=== PATIENT | male | born 1945 | race Caucasian/White ===

== ENCOUNTER → 2016-05-31 | Outpatient (CLI) | payer BC ==
[~2016-05-31] MED LIST: ASPEC325 PO; ASPI81TA28 PO; ATOR-24 PO; CELE100C PO; CELE1CAP30 PO; CEPH500C2 PO; CLOP1TAB15 PO; CYAN10005 PO; METO-478 PO; MULT-506 PO; NTRGSL/4 UT; TAMS0.4C38 PO; ZNTT/150 PO
--- NOTE | 2016-05-31 16:58 | DIAGNOSTIC IMAGING REPORT ---
ABDOMEN AND PELVIS CT WITHOUT CONTRAST CT DOSE: 341.44 mGy.cm HISTORY: Pain HEMATURIA TECHNIQUE: Multiaxial CT images of the abdomen and pelvis were performed without the use of intravenous and oral contrast according to the standard department stone protocol. COMPARISON STUDY: None. FINDINGS: Emphysematous change both lung bases. Configuration of liver spleen and pancreas are grossly unremarkable. Left kidney is negative for calcification or hydronephrosis. Right kidney shows several nonobstructing renal calcifications. There is mild fullness of the right renal pelvis and right ureter. There is a 2.5 mm obstructing calculus distal right ureter 2 cm proximal to the right ureterovesical junction. Bowel pattern is considered nonobstructive. There is extensive atherosclerotic change of the arterial vasculature of the of the abdomen and pelvis. Appears be a left iliac arterial stent in her bypass. IMPRESSION: 1. 2.5 mm partially obstructing calculus distal right ureter. 2. Several nonobstructing right renal calcifications. Electronically signed by: Jl Sherwood M.D. 05/31/2016 4:56 PM Dictated Date/Time: 05/31/2016 4:54 PM
== END | disposition home or self-care (01) ==
LOC: C.CTS 16:41
PROVIDERS: ATTEND Family Medicine
DX: R31.0 Gross hematuria (principal); N20.1 Calculus of ureter; N28.89 Other specified disorders of kidney and ureter

== ENCOUNTER → 2016-06-02 | Outpatient (CLI) | payer BC | END | disposition home or self-care (01) | LOC: C.LABSPEC 17:12 | PROVIDERS: ATTEND Nurse Practitioner Adult Health | DX: N20.1 Calculus of ureter (principal) ==

== ENCOUNTER → 2016-09-27 | Outpatient (CLI) | payer BC ==
[~2016-09-27] MED LIST changes: -ASPI81TA28 PO; -CELE1CAP30 PO; -CEPH500C2 PO; -METO-478 PO; +METO1TAB31 PO; -TAMS0.4C38 PO
[2016-09-27 11:14] LABS: BASO % 0.6 %; BASO ABS # 0.04 K/uL (0-0.2); COMPLETE YES; EOS % 2.6 %; IG% 0.3 %; LYMPH % 27.5 %; LYMPH ABS # 1.92 K/uL (1.2-3.4); MEAN CELL VOLUME 94.9 fL (80-100); MEAN CORPUSCULAR HGB CONC 32.7 g/dl (32-36); MEAN PLATELET VOLUME 10.4 fL (7.4-10.4); MONO % 7.7 %; NEUT % 61.3 %; PLATELET COUNT 183 K/uL (130-400); RED BLOOD COUNT 5.06 M/uL (4.7-6.1); WHITE BLOOD COUNT 6.98 K/uL (4.8-10.8)
[2016-09-27 11:39] LABS: ESTIMATED AVERAGE GLUCOSE 120 mg/dl; HA1C FLAG Normal (Normal)
[2016-09-27 11:43] LABS: ALB/GLOB RATIO 1.1 (0.9-2); ALKALINE PHOSPHATASE 71 U/L (45-117); ALT/SGPT 24 U/L (12-78); AST/SGOT 15 U/L (15-37); BLOOD UREA NITROGEN 26 mg/dl (7-18); BUN/CREATININE RATIO 30.2 (10-20); CALCIUM 8.9 mg/dl (8.5-10.1); CARBON DIOXIDE 29 mmol/L (21-32); CHLORIDE 108 mmol/L (98-107); CHOLESTEROL 96 mg/dl (0-200); CREATININE 0.85 mg/dl (0.60-1.40); GLUCOSE 98 mg/dl (70-99); HDL CHOLESTEROL 48 mg/dl; LDL CHOLESTEROL CALCULATED 38 mg/dl; POTASSIUM 4.1 mmol/L (3.5-5.1); SODIUM 141 mmol/L (136-145); TRIGLYCERIDES 48 mg/dl (0-150); URIC ACID 4.5 mg/dl (2.6-7.2); VERY LOW DENSITY LIPOPROT CALC 10 mg/dl
[2016-09-27 11:52] LABS: TOTAL IRON BINDING CAPACITY 271 mcg/dl (250-450)
[2016-09-30 17:19] LABS: 18KDIGG BAND NONREACTIVE (NONREACTIVE); 23KDIGG BAND NONREACTIVE (NONREACTIVE); 23KDIGM BAND NONREACTIVE (NONREACTIVE); 28KDIGG BAND NONREACTIVE (NONREACTIVE); 30KDIGG BAND NONREACTIVE (NONREACTIVE); 39KDIGG BAND NONREACTIVE (NONREACTIVE); 39KDIGM BAND NONREACTIVE (NONREACTIVE); 41KDIGG BAND REACTIVE (NONREACTIVE); 41KDIGM BAND NONREACTIVE (NONREACTIVE); 45KDIGG BAND NONREACTIVE (NONREACTIVE); 58KDIGG BAND REACTIVE (NONREACTIVE); 66KDIGG BAND NONREACTIVE (NONREACTIVE); 93KDIGG BAND NONREACTIVE (NONREACTIVE)
== END | disposition home or self-care (01) ==
LOC: C.LAB 08:15
PROVIDERS: ATTEND Family Medicine
DX: R73.09 Other abnormal glucose (principal); E55.9 Vitamin D deficiency, unspecified; D51.9 Vitamin B12 deficiency anemia, unspecified; E78.9 Disorder of lipoprotein metabolism, unspecified; R53.83 Other fatigue

== ENCOUNTER → 2016-09-28 | Outpatient (CLI) | payer BC ==
--- NOTE | 2016-09-28 09:51 | DIAGNOSTIC IMAGING REPORT ---
ULTRASOUND EXAM AAA SCREEN CLINICAL HISTORY: ABD AORTIC ANEURYSM COMPARISON STUDY: CT scan dated 05/31/2016 FINDINGS: There are diffuse atheromatous changes present within the abdominal aorta. There is no evidence of abdominal aortic aneurysm. The maximal aortic diameter is 2.5 cm proximally. The maximal distal aortic diameter is 2 cm. There is no iliac artery aneurysm. IMPRESSION: Diffuse atheromatous change. No evidence of abdominal aortic aneurysm. Electronically signed by: Kolby Burks M.D. 09/28/2016 9:49 AM Dictated Date/Time: 09/28/2016 9:48 AM
== END | disposition home or self-care (01) ==
LOC: C.ULTR 09:10
PROVIDERS: ATTEND Family Medicine
DX: I71.4 Abdominal aortic aneurysm, without rupture (principal)

== ENCOUNTER 2017-01-19 14:07 | Emergency (ER) | payer BC ==
[~2017-01-19] VITALS: Ht 177.8 cm; Wt 61.2 kg
[~2017-01-19 14:07] MED LIST changes: +METO-478 PO; -METO1TAB31 PO
[2017-01-19 14:23] VITALS: Ht 177.8 cm; Wt 61.2 kg
[2017-01-19] MEDS ORDERED: XYLOCAINE 1%/SOD BICARB 20 ML VIAL INFIL ONE (15:00)
--- NOTE | 2017-01-19 15:11 | DIAGNOSTIC IMAGING REPORT ---
L FINGER(S) MIN 2 VIEWS ROUTINE CLINICAL HISTORY: LEFT THUMB, LAC AT DORSAL 1ST MCP JOINT COMPARISON: None. DISCUSSION: Soft tissue edema and disruption. No acute bony abnormality. Cortical margins are intact. IMPRESSION: Soft tissue disruption/laceration. No acute bony abnormality. The above report was generated using voice recognition software. It may contain grammatical, syntax or spelling errors. Electronically signed by: Jl Sherwood M.D. 01/19/2017 3:09 PM Dictated Date/Time: 01/19/2017 3:08 PM
[2017-01-19] MEDS ORDERED: ASPI81TA28 PO (15:14)
[2017-01-19] MEDS ORDERED: CELE1CAP30 PO (15:14)
[2017-01-19] MEDS ORDERED: TAMS0.4C38 PO (15:14)
[2017-01-19] MEDS ORDERED: CEPH500C2 PO (15:59)
--- NOTE | 2017-01-19 15:59 | EMERGENCY ROOM VISIT NOTE ---
ED Visit Note First contact with patient: 14:36 CHIEF COMPLAINT: Left thumb laceration a couple of hours ago HISTORY OF PRESENT ILLNESS: Patient is a [id number] 71-year-old white male who presents to the emergency department for evaluation of a laceration to the left thumb that he sustained a couple of hours ago. He was using a meat saw to cut up a deer, when he slipped and accidentally cut the back of his left thumb. Bleeding has been controlled. He notes minimal pain that he rates a 2/ 10. He denies any numbness or weakness. He believes that the tetanus is up-to- date. REVIEW OF SYSTEMS: Review of systems as per HPI. All other systems reviewed were negative. At least 6 systems reviewed. PMH: Electronic medical records are reviewed and summarized as above/below. See Problem List. SOCIAL HISTORY: Patient lives at home. Smoker. PHYSICAL EXAM: Vital Signs: Reviewed Nurse's notes. There is a 3 cm long laceration on the dorsal aspect of the left thumb over the MCP joint. The edges are gaping apart. There is no foreign material in the wound and it looks clean. There is no active bleeding. No deep structures such as tendons or nerves are seen in the base of the wound. Extension, flexion and abduction and adduction of the thumb is full and strong. Sensation to pain and light touch is intact. EMERGENCY DEPARTMENT COURSE: X-rays of the left thumb were obtained and were negative for bony pathology. Using sterile technique, saline and Betadine cleansing, and 1% lidocaine anesthesia, the laceration was irrigated with saline and then repaired with 8, 5 -0 nylon sutures. There was no evidence for tenderness injury, but the patient did get into joint capsule. Laceration did not extend into the joint space. After discussion with the patient, he has elected to get a new tetanus today, as he is unsure whether it is 4 or 10 years old. This was updated today. He will be placed on Keflex given the capsule injury, again by exam and range of motion there does not appear to be any ligamentous injury. Wound care measures were discussed. Medication reconciliation: I attest that I have personally reviewed the patient' s current medication list. Blood pressure screening : Patient was found to have normal blood pressure on screening and does not require follow-up. L FINGER(S) MIN 2 VIEWS ROUTINE CLINICAL HISTORY: LEFT THUMB, LAC AT DORSAL 1ST MCP JOINT COMPARISON: None. DISCUSSION: Soft tissue edema and disruption. No acute bony abnormality. Cortical margins are intact. IMPRESSION: Soft tissue disruption/laceration. No acute bony abnormality. Problem List Medical Problems: (1) Atrial Fibrillation Status: Chronic (2) Calculus Of Ureter Status: Resolved (3) COPD (chronic obstructive pulmonary disease) Status: Chronic (4) Coronary Atherosclerosis Of [place] Coronary Vessel Status: Chronic (5) Esophageal Reflux Status: Chronic (6) Hyperlipidemia, Unspecified Status: Chronic (7) Hypertension Nos Status: Chronic Surgical Problems: (1) Heart Valve Replac Nec Status: Resolved Current/Historical Medications Scheduled Aspirin (Aspirin Ec), 81 MG PO DAILY Atorvastatin (Lipitor), 40 MG PO DAILY Celecoxib (Celecoxib), 200 MG PO DAILY Cephalexin Monohydrate (Keflex), 500 MG PO QID Clopidogrel (Plavix), 75 MG PO DAILY Cyanocobalamin (Vitamin B-12), 1,000 MCG PO DAILY Metoprolol Succinate (Toprol Xl), 12.5 MG PO QPM Multivitamin (Multivitamin), 1 TAB PO DAILY Ranitidine (Zantac), 150 MG PO BID Tamsulosin Hcl (Flomax), 0.4 MG PO HS Allergies Coded Allergies: No Known Allergies (Unverified , 01/19/17) Vital Signs Date Time Temp Pulse Resp B/P (MAP) Pulse Ox O2 Delivery O2 Flow Rate FiO2 01/19/17 16:08 109 18 94/59 94 Room Air 01/19/17 14:23 36.9 109 20 120/77 94 Room Air Departure Information Impression Primary Impression: Laceration of thumb Prescriptions Cephalexin Monohydrate (KEFLEX) 500 Mg Cap 500 MG PO QID, #40 CAP Prov: Charisma Matta PA 01/19/17 Referrals No Doctor, Assigned (PCP) Patient Instructions My [facility] Additional Instructions Keep wound clean and dry. Do not allow any crusting or dried blood to accumulate on sutures. If this occurs, use a 1:1 solution of hydrogen peroxide/ water on a Q-tip to clean the wound. Use an antibiotic ointment for 3-4 days, then let wound dry. Suture removal in 14 days. Return sooner for any signs of infection (increasing redness, swelling, drainage). Ice and elevate for swelling and pain. Ibuprofen 600 mg and Tylenol 1000 mg every 6 hrs for pain. Cephalexin(Keflex) 500mg: Take one pill four times daily for 10 days to prevent infection. All antibiotics can cause diarrhea. If this occurs and you feel worse or it does not resolve in 1-2 days follow up with your doctor or return to the Emergency Department as this could be signs of serious underlying problems. Any medication can cause an allergic reaction, stop the pills immediately and return to the ER for rash, hives, breathing difficulties, or swelling.
[2017-01-19 16:30] VITALS: BP 94/59; PULSE 109; TEMP 36.9; O2SAT 94
[2017-01-19] MEDS ORDERED: DIPHTHERIA/TETANUS/PERTUSSIS 0.5 ML SYR/VIAL IM. ONE (16:30)
== END 2017-01-19 16:42 | disposition home or self-care (01) ==
LOC: C.EDB 14:09 → C.EDD 16:42
DX: S61.012A Laceration without foreign body of left thumb without damage to nail, initial encounter (principal); W27.0XXA Contact with workbench tool, initial encounter; Y93.89 Activity, other specified; F17.210 Nicotine dependence, cigarettes, uncomplicated; Z23 Encounter for immunization; I48.2 Chronic atrial fibrillation; Z87.442 Personal history of urinary calculi; J44.9 Chronic obstructive pulmonary disease, unspecified; I25.10 Atherosclerotic heart disease of native coronary artery without angina pectoris; K21.9 Gastro-esophageal reflux disease without esophagitis; E78.5 Hyperlipidemia, unspecified; I10 Essential (primary) hypertension; Z95.2 Presence of prosthetic heart valve; Z79.82 Long term (current) use of aspirin; Z79.01 Long term (current) use of anticoagulants; Z79.899 Other long term (current) drug therapy

== ENCOUNTER → 2017-06-14 | Outpatient (CLI) | payer BC ==
[~2017-06-14] MED LIST changes: -ASPEC325 PO; +ASPI81TA28 PO; -CELE100C PO; +CELE1CAP30 PO; +CEPH500C2 PO; -NTRGSL/4 UT; +RANI150T85 PO; +TAMS0.4C38 PO; -ZNTT/150 PO
[2017-06-14 10:46] LABS: BASO % 0.4 %; BASO ABS # 0.03 K/uL (0-0.2); EOS % 1.7 %; EOS ABS # 0.13 K/uL (0-0.5); IG# 0.02 K/uL (0.00-0.02); LYMPH % 19.2 %; MEAN CORPUSCULAR HEMOGLOBIN 32.4 pg (25-34); MEAN CORPUSCULAR HGB CONC 34.1 g/dl (32-36); MEAN PLATELET VOLUME 9.7 fL (7.4-10.4); MONO % 7.8 %; MONO ABS # 0.61 K/uL (0.11-0.59); NEUT % 70.6 %; NEUT ABS # 5.51 K/uL (1.4-6.5); PLATELET COUNT 240 K/uL (130-400); RED CELL DISTRIBUTION WIDTH CV 14.5 % (11.5-14.5); RED CELL DISTRIBUTION WIDTH SD 50.5 fL (36.4-46.3)
[2017-06-14 11:16] LABS: ALBUMIN 3.5 gm/dl (3.4-5.0); ALT/SGPT 25 U/L (12-78); BLOOD UREA NITROGEN 20 mg/dl (7-18); CALCIUM 9.3 mg/dl (8.5-10.1); CARBON DIOXIDE 27 mmol/L (21-32); CREATININE 0.87 mg/dl (0.60-1.40); GLUCOSE 105 mg/dl (70-99); POTASSIUM 4.2 mmol/L (3.5-5.1); SODIUM 137 mmol/L (136-145)
[2017-06-14 11:20] LABS: ALKALINE PHOSPHATASE 68 U/L (45-117); AST/SGOT 18 U/L (15-37); TOTAL PROTEIN 7.8 gm/dl (6.4-8.2)
== END | disposition home or self-care (01) ==
LOC: C.LABBC 08:13
PROVIDERS: ATTEND Internal Medicine
DX: E78.5 Hyperlipidemia, unspecified (principal)

== ENCOUNTER 2020-04-29 06:53 | Inpatient (IN) ==
--- NOTE | 2020-04-29 07:23 | Emergency Department Note ---
ED Visit Note This patient was seen in concert with Dr. Schneider and we discussed and agreed upon the history, physical, assessment, and plan. See attending's note for details. . Resident Activity Tracking Resident Involvement: Resident Care Provided Care Provided: Adult ED
[2020-04-29] MEDS ORDERED: SODIUM CHLORIDE 0.9% 1000ML 1,000 ML IV SCH (07:30)
--- NOTE | 2020-04-29 07:36 | Emergency Department Note ---
History of Present Illness General Chief complaint: Illness Stated complaint: LUNG CANCER MATASTISIZED TO BRAIN-EPISODE Time Seen by Provider: 04/29/20 07:11 Source: patient Mode of arrival: ambulatory Limitations: no limitations History of Present Illness Provider complaint: Shortness of breath Maximum Pain Intensity: 9 This is a 75-year-old male who presents to the ED with a chief complaint of shortness of breath. The patient has had increased weakness. He also lost taste today. 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 He has a cough on exam. He does use oxygen at home. His oxygen saturation on 2 L here was around 75%. He is requiring a oxygen mask. He is currently on 3 L. He has a fever 37.9. Patient is otherwise a poor historian. He seems a little restless. Home Medications Medication Instructions Recorded Confirmed Type multivitamin 1 tab PO QAM 09/26/18 04/29/20 History albuterol sulfate 90 mcg/actuation 1 puffs INH QID PRN #1 ea 08/30/19 04/29/20 Rx breath activated powder inhaler celecoxib 200 mg capsule 200 mg PO BID cap 08/30/19 04/29/20 History clopidogrel 75 mg tablet 75 mg PO DAILY #90 tab 09/04/19 04/29/20 Rx Portable Oxygen #1 ea 09/13/19 04/21/20 Rx famotidine 40 mg tablet 40 mg PO BID tab 03/19/20 04/29/20 History tamsulosin 0.4 mg capsule 0.4 mg PO QAM cap 03/19/20 04/29/20 History aspirin [Aspir-81] 81 mg PO HS 04/29/20 04/29/20 History atorvastatin 40 mg PO HS 04/29/20 04/29/20 History clindamycin phosphate 1 applic TOPICAL BID PRN 04/29/20 04/29/20 History dexamethasone 4 mg PO BID 04/29/20 04/29/20 History isosorbide mononitrate 15 mg PO HS 04/29/20 04/29/20 History metoclopramide HCl 5 mg PO BID 04/29/20 04/29/20 History umeclidinium-vilanterol [Anoro 1 inh INH QAM 04/29/20 04/29/20 History Ellipta] Allergies Allergy/AdvReac Type Severity Reaction Status Date / Time No Known Allergies Allergy Verified 04/29/20 09:01 Past Med/Surg History Medical History Cachexia CAD (coronary artery disease) Chest pain Chronic cough Chronic hypoxemic respiratory failure 3L NC Cigar smoker Former, quit 07/2019 COPD (chronic obstructive pulmonary disease) Dyslipidemia Dyspnea on exertion Emphysema lung Fatigue Former cigarette smoker from age [age] GE reflux H/O arthritis History of myocardial infarction (~2012) History of syncope Hypoxemia Nephrolithiasis Non-small cell lung cancer (NSCLC) (09/28/19) Vomiting Weakness Surgical History History of coronary artery stent placement (~2012) History of hernia surgery x 2 History of hip surgery Left S/P bronchoscopy with biopsy 09/28/2019, 11/01/2019 (Dr. Villagran) Family History Mother , Passed age 87 of COPD/Emphysema/Heart (Heavy smoker) No problems noted. Father , Passed age 71 of alcoholism No problems noted. Brother No problems noted. Sister No problems noted. Sister , Passed age 19 of multiple complications from defects No problems noted. Sister , Passed in 50's of homicide No problems noted. 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 Beliefs That Will Affect Care: None marital status: Current Living Situation: Spouse current occupational status: retired current occupation: Retired [employer] Feels Safe at Home: Yes Childhood Exposure to Second-Hand Smoke: Yes Diet Comment: "I have a hard time eating anything anymore due to taste changes" caffeine: Yes (1/2 cup of coffee/day ) during the past year weight has: decreased > 10 lbs Dental Care, Regularly: No Seatbelt Use: always Sunscreen Use: No Assistive Devices: Oxygen - Continuous Review of Systems A total of 10 systems reviewed and were otherwise negative Physical Exam Vital Signs Vital Signs - 24 hr 04/29/20 06:56 04/29/20 07:00 04/29/20 07:15 Temperature 37.9 C H Temperature Source Temporal Artery Scan Pulse Rate 94 H 102 H Pulse Rate from SpO2 Sensor Respiratory Rate 24 23 Blood Pressure 127/62 Blood Pressure Mean 83 Pulse Oximetry 99 75 L Oxygen Delivery Method Nasal Cannula Nasal Cannula Oxygen Flow Rate 3 3 Sepsis Recent Fever Within 48 Hours Yes Sepsis New/Unexplained Change in Mental Status No Sepsis Action Taken by Nursing No Action Required Oxygen Flow Rate - Titration Pulse Oximetry Post Tiitration 04/29/20 07:30 04/29/20 07:43 04/29/20 07:45 Temperature Temperature Source Pulse Rate 116 H 113 H 106 H Pulse Rate from SpO2 Sensor 92 H 88 73 Respiratory Rate 24 28 H 26 H Blood Pressure 115/75 106/56 L Blood Pressure Mean 88 72 Pulse Oximetry 94 91 91 Oxygen Delivery Method Oxymask Oxymask Oxymask Oxygen Flow Rate 10 10 10 Sepsis Recent Fever Within 48 Hours Sepsis New/Unexplained Change in Mental Status Sepsis Action Taken by Nursing Oxygen Flow Rate - Titration Pulse Oximetry Post Tiitration 04/29/20 07:46 04/29/20 07:51 04/29/20 08:00 Temperature Temperature Source Pulse Rate 113 H 114 H Pulse Rate from SpO2 Sensor 65 98 H Respiratory Rate 27 H 22 Blood Pressure 114/71 Blood Pressure Mean 85 Pulse Oximetry 90 93 92 Oxygen Delivery Method Oxymask Oxymask Oxymask Oxygen Flow Rate 10 10 10 Sepsis Recent Fever Within 48 Hours Sepsis New/Unexplained Change in Mental Status Sepsis Action Taken by Nursing Oxygen Flow Rate - Titration Pulse Oximetry Post Tiitration 04/29/20 08:01 04/29/20 08:02 04/29/20 08:15 Temperature Temperature Source Pulse Rate 124 H 113 H Pulse Rate from SpO2 Sensor 87 109 H Respiratory Rate 23 25 H Blood Pressure 127/77 Blood Pressure Mean 93 Pulse Oximetry 90 75 L 96 Oxygen Delivery Method Oxymask Nasal Cannula Oxymask Oxygen Flow Rate 10 3 10 Sepsis Recent Fever Within 48 Hours Sepsis New/Unexplained Change in Mental Status Sepsis Action Taken by Nursing Oxygen Flow Rate - Titration 10 Pulse Oximetry Post Tiitration 93 04/29/20 08:30 04/29/20 08:31 04/29/20 08:45 Temperature Temperature Source Pulse Rate 113 H 118 H 119 H Pulse Rate from SpO2 Sensor 109 H 79 103 H Respiratory Rate 24 25 H 23 Blood Pressure 105/75 119/72 Blood Pressure Mean 85 87 Pulse Oximetry 92 92 93 Oxygen Delivery Method Oxymask Oxymask Oxymask Oxygen Flow Rate 10 10 10 Sepsis Recent Fever Within 48 Hours Sepsis New/Unexplained Change in Mental Status Sepsis Action Taken by Nursing Oxygen Flow Rate - Titration Pulse Oximetry Post Tiitration 04/29/20 08:46 04/29/20 09:00 04/29/20 09:01 Temperature Temperature Source Pulse Rate 115 H 110 H 109 H Pulse Rate from SpO2 Sensor 98 H 110 H 93 H Respiratory Rate 24 26 H 25 H Blood Pressure 120/70 Blood Pressure Mean 86 Pulse Oximetry 94 95 95 Oxygen Delivery Method Oxymask Oxymask Oxymask Oxygen Flow Rate 10 10 10 Sepsis Recent Fever Within 48 Hours Sepsis New/Unexplained Change in Mental Status Sepsis Action Taken by Nursing Oxygen Flow Rate - Titration Pulse Oximetry Post Tiitration 04/29/20 09:15 04/29/20 09:16 Temperature Temperature Source Pulse Rate 120 H 121 H Pulse Rate from SpO2 Sensor 111 H 108 H Respiratory Rate 29 H 16 Blood Pressure 113/70 Blood Pressure Mean 84 Pulse Oximetry 92 90 Oxygen Delivery Method Oxymask Oxymask Oxygen Flow Rate 10 10 Sepsis Recent Fever Within 48 Hours Sepsis New/Unexplained Change in Mental Status Sepsis Action Taken by Nursing Oxygen Flow Rate - Titration Pulse Oximetry Post Tiitration CONSTITUTIONAL/VITAL SIGNS: Reviewed / noted above. GENERAL: Non-toxic in appearance. INTEGUMENTARY: Warm, dry, and [place]. HEAD: Normocephalic. EYES: without scleral icterus or trauma. ENT/OROPHARYNX: clear and moist. LYMPHADENOPATHY/NECK: Is supple without lymphadenopathy or meningismus. RESPIRATORY: Lungs rhonchi in the right lung. CARDIOVASCULAR: Tachycardic rate and slightly irregular rhythm. GI/ABDOMEN: Soft and nontender. No organomegaly or pulsatile mass. No rebound or guarding. Normal bowel sounds. EXTREMITIES: Warm and well perfused. BACK: No CVA tenderness. NEUROLOGICAL: Intact without focal deficits. Patient seems a little restless. PSYCHIATRIC: normal affect. MUSCULOSKELETAL: Normally developed with good muscle tone. TRIAGE NURSING DOCUMENTATION REVIEWED. Course Administered Medications Discontinued Medications Sodium Chloride (Nss 1000ml) 1,000 mls @ 999 mls/hr IV .Q1H1M LAKSHMI Stop: 04/29/20 08:30 Last Admin: 04/29/20 08:00 Dose: 999 mls/hr Documented by: [id number] Piperacillin Sod/Tazobactam Sod (Zosyn) 4.5 gm in 120 mls @ 240 mls/hr IV NOW ONE Stop: 04/29/20 08:08 Last Admin: 04/29/20 08:26 Dose: 240 mls/hr Documented by: [id number] Medical Decision Making Differential Diagnosis Differential includes acute coronary syndrome, myocardial infarction, CVA, TIA, anemia, infection, pneumonia, UTI, pyelonephritis, poor nutrition, dehydration, electrolyte disturbance,hypoglycemia. Medical Records Attestation: I reviewed the patient's medical records. Home Medications Current Medication List: was personally reviewed by me Laboratory Data Attestation: I reviewed the patient's lab results. Result diagrams: 04/29/20 07:40 04/29/20 07:40 Lab Results 04/29/20 04/29/20 04/29/20 Range/Units 07:40 07:40 07:40 WBC 5.18 (4.8-10.8) K/uL RBC 4.32 L (4.7-6.1) M/uL Hgb 14.3 (14.0-18.0) g/dL Hct 40.1 L (42-52) % MCV 92.8 (80-100) fL MCH 33.1 (25-34) pg MCHC 35.7 (32-36) g/dL RDW Std Deviation 54.3 H (36.4-46.3) fL RDW Coeff of Bob 16.0 H (11.5-14.5) % Plt Count 77 L (130-400) K/uL MPV 9.9 (7.4-10.4) fL Immature Gran % (Auto) 5.2 % Neut % (Auto) 89.0 % Lymph % (Auto) 4.4 % Kern % (Auto) 0.8 % Eos % (Auto) 0.4 % Baso % (Auto) 0.2 % Neut # (Auto) 4.61 (1.4-6.5) K/uL Lymph # (Auto) 0.23 L (1.2-3.4) K/uL Kern # (Auto) 0.04 L (0.11-0.59) K/uL Eos # (Auto) 0.02 (0-0.5) K/uL Baso # (Auto) 0.01 (0-0.2) K/uL Immature Gran # (Auto) 0.27 H (0.00-0.02) K/uL Absolute Nucleated RBC 0.05 H (0-0) K/uL Nucleated RBC % (auto) 1.0 % Platelet Estimate Decreased L (Normal) PT 10.5 (9.0-12.0) Seconds INR 1.0 (0.9-1.1) APTT 25.1 (21.0-31.0) Seconds PTT Ratio 1.0 Sodium 137 (136-145) mmol/L Potassium 3.9 (3.5-5.1) mmol/L Chloride 101 (98-107) mmol/L Carbon Dioxide 29 (21-32) mmol/L Anion Gap 7.0 (3-11) BUN 27 H (7-18) mg/dl Creatinine 0.99 (0.6-1.4) mg/dl Est Cr Clr Drug Dosing 57.3 ml/min Est GFR ( Amer) 87.2 Est GFR (Non-Af Amer) 75.2 BUN/Creatinine Ratio 26.9 H (10-20) Glucose 197 H (70-99) mg/dl Lactate (0.4-2.0) mmol/L Calcium 9.6 (8.5-10.1) mg/dl Magnesium 1.7 L (1.8-2.4) mg/dl Total Bilirubin 0.8 (0.2-1) mg/dl AST 37 (15-37) U/L ALT 111 H (12-78) U/L Alkaline Phosphatase 89 (45-117) U/L Troponin I 0.246 H* (0-0.045) ng/ml Total Protein 6.7 (6.4-8.2) gm/dl Albumin 2.5 L (3.4-5.0) gm/dl Globulin 4.2 H (2.5-4.0) gm/dl Albumin/Globulin Ratio 0.6 L (0.9-2) Procalcitonin (0-0.5) ng/ml COVID-19 Eval Order SARS-CoV-2, RNA, NAAT (NEGATIVE) 04/29/20 04/29/20 04/29/20 Range/Units 07:40 07:40 07:55 WBC (4.8-10.8) K/uL RBC (4.7-6.1) M/uL Hgb (14.0-18.0) g/dL Hct (42-52) % MCV (80-100) fL MCH (25-34) pg MCHC (32-36) g/dL RDW Std Deviation (36.4-46.3) fL RDW Coeff of Bob (11.5-14.5) % Plt Count (130-400) K/uL MPV (7.4-10.4) fL Immature Gran % (Auto) % Neut % (Auto) % Lymph % (Auto) % Kern % (Auto) % Eos % (Auto) % Baso % (Auto) % Neut # (Auto) (1.4-6.5) K/uL Lymph # (Auto) (1.2-3.4) K/uL Kern # (Auto) (0.11-0.59) K/uL Eos # (Auto) (0-0.5) K/uL Baso # (Auto) (0-0.2) K/uL Immature Gran # (Auto) (0.00-0.02) K/uL Absolute Nucleated RBC (0-0) K/uL Nucleated RBC % (auto) % Platelet Estimate (Normal) PT (9.0-12.0) Seconds INR (0.9-1.1) APTT (21.0-31.0) Seconds PTT Ratio Sodium (136-145) mmol/L Potassium (3.5-5.1) mmol/L Chloride (98-107) mmol/L Carbon Dioxide (21-32) mmol/L Anion Gap (3-11) BUN (7-18) mg/dl Creatinine (0.6-1.4) mg/dl Est Cr Clr Drug Dosing ml/min Est GFR ( Amer) Est GFR (Non-Af Amer) BUN/Creatinine Ratio (10-20) Glucose (70-99) mg/dl Lactate 4.6 H* (0.4-2.0) mmol/L Calcium (8.5-10.1) mg/dl Magnesium (1.8-2.4) mg/dl Total Bilirubin (0.2-1) mg/dl AST (15-37) U/L ALT (12-78) U/L Alkaline Phosphatase (45-117) U/L Troponin I (0-0.045) ng/ml Total Protein (6.4-8.2) gm/dl Albumin (3.4-5.0) gm/dl Globulin (2.5-4.0) gm/dl Albumin/Globulin Ratio (0.9-2) Procalcitonin 7.60 H (0-0.5) ng/ml COVID-19 Eval [facility] SARS-CoV-2, RNA, NAAT (NEGATIVE) 04/29/20 Range/Units 07:55 WBC (4.8-10.8) K/uL RBC (4.7-6.1) M/uL Hgb (14.0-18.0) g/dL Hct (42-52) % MCV (80-100) fL MCH (25-34) pg MCHC (32-36) g/dL RDW Std Deviation (36.4-46.3) fL RDW Coeff of Bob (11.5-14.5) % Plt Count (130-400) K/uL MPV (7.4-10.4) fL Immature Gran % (Auto) % Neut % (Auto) % Lymph % (Auto) % Kern % (Auto) % Eos % (Auto) % Baso % (Auto) % Neut # (Auto) (1.4-6.5) K/uL Lymph # (Auto) (1.2-3.4) K/uL Kern # (Auto) (0.11-0.59) K/uL Eos # (Auto) (0-0.5) K/uL Baso # (Auto) (0-0.2) K/uL Immature Gran # (Auto) (0.00-0.02) K/uL Absolute Nucleated RBC (0-0) K/uL Nucleated RBC % (auto) % Platelet Estimate (Normal) PT (9.0-12.0) Seconds INR (0.9-1.1) APTT (21.0-31.0) Seconds PTT Ratio Sodium (136-145) mmol/L Potassium (3.5-5.1) mmol/L Chloride (98-107) mmol/L Carbon Dioxide (21-32) mmol/L Anion Gap (3-11) BUN (7-18) mg/dl Creatinine (0.6-1.4) mg/dl Est Cr Clr Drug Dosing ml/min Est GFR ( Amer) Est GFR (Non-Af Amer) BUN/Creatinine Ratio (10-20) Glucose (70-99) mg/dl Lactate (0.4-2.0) mmol/L Calcium (8.5-10.1) mg/dl Magnesium (1.8-2.4) mg/dl Total Bilirubin (0.2-1) mg/dl AST (15-37) U/L ALT (12-78) U/L Alkaline Phosphatase (45-117) U/L Troponin I (0-0.045) ng/ml Total Protein (6.4-8.2) gm/dl Albumin (3.4-5.0) gm/dl Globulin (2.5-4.0) gm/dl Albumin/Globulin Ratio (0.9-2) Procalcitonin (0-0.5) ng/ml COVID-19 Eval Order SARS-CoV-2, RNA, NAAT NEGATIVE (NEGATIVE) Imaging Data My Impression: SINGLE VIEW CHEST CLINICAL HISTORY: Sepsis. FINDINGS: An AP, portable, upright chest radiograph is compared to study dated 08/06/2019 and correlated with chest CT dated 02/27/2020. The heart is enlarged noting atherosclerotic calcification of the thoracic aorta. The pulmonary vasculature is noncongested. Advanced emphysema and chronic interstitial thickening is similar to previous. Residual parenchymal scarring/mass lesion is again seen in the right upper lobe. There is patchy airspace consolidation seen throughout both lungs, greatest at the left lung base. No large pleural effusion or pneumothorax is seen. The skeletal structures are osteopenic. The bony thorax is grossly intact. IMPRESSION: 1. Patchy airspace consolidation is seen throughout both lungs, most confluent at the left lung base. Correlate clinically for evidence of pneumonia/aspiration pneumonitis. Radiographic follow-up to resolution is recommended. 2. Cardiomegaly and emphysema with residual scarring/mass lesion in the right upper lobe. ECG Data Attestation: I personally reviewed and interpreted this ECG as follows: Indication: + weakness Rate (beats per minute): 128/ Rhythm: + sinus rhythm ECG ST segments: no ST elevation ECG Findings: + PVCs MDM Narrative This is a 75-year-old male who presents to the ED with a chief complaint of increased weakness as well as some shortness of breath. The patient was a longtime smoker. He has metastatic lung cancer to the brain. The patient was found to be hypoxic this morning on his usual 2 L. He has a temperature of 37.9. His heart rate was 128. His EKG shows a sinus tach. He seems restless on exam. He is some rhonchi in the right lung. Chest x-ray suggest patchy airspace opacities in both lungs suggestive of a bilateral pneumonia. CBC was unremarkable. BUN is 27, lactic acid level is 4.6. Troponin is elevated at 0.241. Procalcitonin level is elevated at 7.4. The patient was treated with IV antibiotic and IV fluids. He will be seen by the hospitalist for further inpatient evaluation and care. Impression & Plan Pneumonia, Hypoxia, Elevated troponin Discharge Plan Visit Data Chief Complaint: Illness Stated Complaint: LUNG CANCER MATASTISIZED TO BRAIN-EPISODE ED Provider: Robbie Schneider ED Midlevel Provider: Luis Miguel Hugo Discharge Problem: Pneumonia, Hypoxia, Elevated troponin Patient Disposition: Being Evaluated by Hospitalist Forms Stand Alone Forms: [facility] Prescriptions Prescriptions: No Action clopidogrel [Plavix] 75 mg tablet 75 mg PO DAILY Qty: 90 RF: 3 (DME) Portable Oxygen Misc See Rx Instructions .ROUTE .MEDSUPPLY Qty: 1 RF: 0 multivitamin tablet 1 tab PO QAM RF: 0 celecoxib [Celebrex] 200 mg capsule 200 mg PO BID RF: 0 tamsulosin [Flomax] 0.4 mg capsule 0.4 mg PO QAM RF: 0 albuterol sulfate 90 mcg/actuation aerosol powdr breath activated 1 puffs INH QID PRN (Reason: shortness of breath or wheezing) Qty: 1 RF: 2 famotidine 40 mg tablet 40 mg PO BID RF: 0 metoclopramide HCl 5 mg tablet 5 mg PO BID RF: 0 aspirin [Aspir-81] 81 mg Tablet,Delayed Release (Dr/Ec) 81 mg PO HS RF: 0 atorvastatin 40 mg tablet 40 mg PO HS RF: 0 isosorbide mononitrate 30 mg tablet extended release 24 hr 15 mg PO HS RF: 0 clindamycin phosphate 1 % gel 1 applic topical BID PRN (Reason: outbreaks) RF: 0 dexamethasone 4 mg tablet 4 mg PO BID RF: 0 Anoro Ellipta 62.5-25 mcg/actuation blister with device 1 inh INH QAM RF: 0 Referrals Referrals: Sherie Sebastian MD [Primary Care Provider] -
[2020-04-29] MEDS ORDERED: PIPERACILL/TAZOBAC CONSULT ACTIVE PRN (07:39)
[2020-04-29] MEDS ORDERED: PIPERACILLIN/TAZOBACTAM 4.5 GM/120 ML BAG IV ONE (07:39)
[2020-04-29 07:58] LABS: Hematocrit (blood only) 40.1 % (42-52); Hemoglobin 14.3 g/dL (14.0-18.0); Mean Corpuscular Hemoglobin 33.1 pg (25-34); Mean Corpuscular Hgb Conc 35.7 g/dL (32-36); Mean Corpuscular Volume 92.8 fL (80-100); Nucleated RBC # (auto) 0.05 K/uL (0-0); RDW Standard Deviation 54.3 fL (36.4-46.3); Red Blood Count 4.32 M/uL (4.7-6.1); White Blood Count 5.18 K/uL (4.8-10.8)
[2020-04-29 08:10] LABS: Partial Thromboplastin Time 25.1 Seconds (21.0-31.0); Prothrombin Time 10.5 Seconds (9.0-12.0)
[2020-04-29 08:11] LABS: Albumin Level 2.5 gm/dl (3.4-5.0); BUN Creatinine Ratio 26.9 (10-20); Calcium 9.6 mg/dl (8.5-10.1); Creatinine Clr Calc Pharmacy 57.3 ml/min; Est GFR (African American) 87.2; Est GFR (Non-African American) 75.2; Magnesium 1.7 mg/dl (1.8-2.4); Potassium 3.9 mmol/L (3.5-5.1)
[2020-04-29 08:27] LABS: Albumin Globulin Ratio 0.6 (0.9-2); Bilirubin,Total 0.8 mg/dl (0.2-1); Globulin 4.2 gm/dl (2.5-4.0); Total Protein 6.7 gm/dl (6.4-8.2); Troponin I 0.246 ng/ml (0-0.045)
--- NOTE | 2020-04-29 08:37 | XRay Report ---
SINGLE VIEW CHEST CLINICAL HISTORY: Sepsis. FINDINGS: An AP, portable, upright chest radiograph is compared to study dated 08/06/2019 and correlat ed with chest CT dated 02/27/2020. The heart is enlarged noting atherosclerotic calcification of the th oracic aorta. The pulmonary vasculature is noncongested. Advanced emphysema and chronic interstitial thickening is similar to previous. Residual parenchymal scarring/mass lesion is again seen in the rig ht upper lobe. There is patchy airspace consolidation seen throughout both lungs, greatest at the lef t lung base. No large pleural effusion or pneumothorax is seen. The skeletal structures are osteopeni c. The bony thorax is grossly intact. IMPRESSION: 1. Patchy airspace consolidation is seen throughout both lungs, most confluent at the left lung base. Correlate clinically for evidence of pneumonia/aspiration pneumonitis. Radiographic follow-up to res olution is recommended. 2. Cardiomegaly and emphysema with residual scarring/mass lesion in the right upper lobe. ACT 112: Negative or not required by law. Electronically signed by: Norbert Price M.D. 04/29/2020 8:36 AM
[2020-04-29 08:51] LABS: Mean Platelet Volume 9.9 fL (7.4-10.4); Platelet Count 77 K/uL (130-400)
[2020-04-29 08:52] LABS: Basophils # (auto) 0.01 K/uL (0-0.2); Basophils % (auto) 0.2 %; Eosinophils # (auto) 0.02 K/uL (0-0.5); Eosinophils % (auto) 0.4 %; Immature Granulocytes # (auto) 0.27 K/uL (0.00-0.02); Immature Granulocytes % (auto) 5.2 %; Lymphocytes # (auto) 0.23 K/uL (1.2-3.4); Lymphocytes % (auto) 4.4 %; Monocytes # (auto) 0.04 K/uL (0.11-0.59); Monocytes % (auto) 0.8 %; Neutrophils # (auto) 4.61 K/uL (1.4-6.5); Platelet Estimate Decreased (Normal)
[2020-04-29] MEDS ORDERED: VANCOMYCIN HCL 1,500 MG in SODIUM CHLORIDE 0.9% 500 ML IV ONE (09:01)
[2020-04-29] MEDS ORDERED: VANCOMYCIN CONSULT ACTIVE PRN (09:01)
[2020-04-29] MEDS ORDERED: SODIUM CHLORIDE 0.9% 1000ML 1,000 ML IV ONE (09:01)
[2020-04-29 10:49] LABS: Influenza A virus by PCR Negative (Neg); Influenza B virus by PCR Negative (Neg); RSV by PCR Negative (Neg); SARS CoV2 RNA(COVID-19) InHosp NEGATIVE (Negative)
--- NOTE | 2020-04-29 10:52 | History & Physical Report ---
Date of Service April 29, 2020 Assessment & Plan (1) Pneumonia: Silviano Bueno is a 75yo M with a PMHx of non-small cell lung cancer with mets to brain on a recent dexamethasone taper who presents with 1 day of fever, chills, sweats, increased shortness of breath, worsened cough, and global weakness. On arrival to ER he was found to have an elevated lactate, troponin leak, fever, profoundly worsening hypoxia, and CXR suspicious for pneumonia. Of note, he also recently had his Covid vaccine within the last week. Sepsis with Acute Hypoxic Respiratory Failure Suspect 2/2 LLL PNA. - increase LLL opacity on CXR compared to prior - COVID with repeat cepheid panel negative x2 for COVID, negative for flu - Lactate elevated to 4, downtrending to 2.3 with empric abx and 2L NSS IVF in ED - WBC 5.15 - Procal 7.6 - Empric vanc/zosyn given in ED. - Continue empiric cefepime/vanc - Blood cultures pending - Sputum cultures pending - Trend lactate - Continue NSS 120cc/hr - Decadron 4mg QID PO - Known to pulmonology, last f/u 3 days ago. Consult placed. - Hypoxia disproportionate to XR finding with tachpnyea and coagulatopathy risk 2/2 underlying malignancy; CT-PE ordered (2) Sepsis: As above (3) Hypoxia: As above Continue high flow nasal cannula oxygen mask to keep pulse ox greater than 88- 90% Scheduled duo nebs He does not desire intubation (4) Elevated troponin: Elevated Troponin, Hx CAD - Hx of MS 7-8 years ago s/p PCI, stress echo 07/2019 with no ischemic findings - No ST derangements on admitting EKG - Suspect demand ischemia - no chest pain at time of assessment - PNA treatment as above, EKG PRN for chest pain - Continue isosorbide, plaavix, ASA81, atorvastatin 40mg daily - trend troponin - BNP pending (5) Non-small cell lung cancer (NSCLC): Non-Small Cell Lung Cancer w/ mets to brain, 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 Noted to have copmleted stereotactic radiation therapy on 04/18/20. - Pt reports was due to followup with Onc ~June at completion of decadron taper for repeat assessment and MRI. - Pt noted to not be a surgical candidate by oncology. Prognosis guarded and worsened by underlying COPD. - Chemoradiation with carboplatin paclitaxel 11/2019-12/2019. - Anticipated darvulumab maintenance therpay x1 year, began 03/04/20 with second cycle 03/25/20. Pt reports he thinks next darvulumab was due today (day of admission). On discussion w/ patient and they have made the decision to stop pursing chemo/radiation treatment but have not yet discussed this with oncology. They report that Brent would like to focus on quality of life rather than length of life, and are not interesting in pursuing curative or therapeutic treatments especially as the recent reatments 'made him so sick it's just not worth it.' He is DNR/DNR and does not want intubation under any circumstances. After goals of care discussion they would like to meet with Palliative care, and likely pursue hospice oriented goals of care after his current illness, but would like to continue treatment for potential infection/PE if present for now. Palliative consult placed. - Hemeonc notified (6) Hypomagnesemia: Hypomagnesemia - Potassium, calcium normal - Mag 1g IV x2, repeat mag in AM (7) Transaminitis: Transaminitis - Prior ALT of 108, 111 today. Normal prior to 04/15/20. No known liver mets. PET scan 10/17/19 did not note any abdominal abnormal tracer uptake. - Trend transaminases daily - darvulumab may cause mild transaminitis (8) COPD (chronic obstructive pulmonary disease): COPD - Continue Anoro/equivalent daily - Pulmonary toilet - Duonebs PRN - Pulm consult as above (9) Thrombocytopenia: - Suspect reactive 2/2 chemotherapy - DDx includes consumptive if PE present vs sepsis induced - Trend daily - No recent heparin exposure prior to ED presentation (10) DVT prophylaxis: DVT PPx: Heparin q8h 5ku 2/2 potential hypercoagulopathy of malignancy. Diet: Regular, aspiration precauations. NSS+20KCl @ 100cc/hr CODE Status: DNR/DNI. History of Present Illness Chief Complaint: Fever, weakness, shortness of breath Primary Care Provider: Sherie Sebastian MD "Brent" reports he started feeling ill yesterday. He reports he was on steroids for the last few weeks which were downgraded just before he started feeling ill. He was placed on steroids for brain metastasis but 'wans't bad, I felt OK' until yesterday. Decreased his steroids last week (thinks Tuesday) down to 4mg twice daily from 4mg QID. Starting yesterday evening he quickly became 'wiped out' and weak with chills and fever. Endorses diarrhea 'like you wouldn't believe' without blood or melena. He endorses decreased taste and increased shortness of breath compared to his normal baseline. He has had an intermittent cough which is not productive. "I have a hard time coughing anything up anymore.' Not usre about other symptoms, just reports 'so fricking weak and cold.' Last radiation treatment was 2-3 weeks ago. He was supposed to have addtional treatment today (thinks radiation but "I cant remember") Medication: Reports is NOT on MTP. Is on plaavix/ASA, was told to stay on DAPT for life. MedHx: Hx of MS 7-8 years ago. Hx of cardiac stends and L leg stent (upper, high). 2L Home O2. No CPAP, but breaths with oxygen qHS Silviano had his first COVID shot 4-5 days ago. His has also had one shot. Tobacco: Former smoker, quit in July 2019. Previously smoked cigars 3-4x per day for 'years' EtoH: None Recreational: None Social: lives with his in a home, no one sick at home. 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 Code Status: DNR/DNI, do not intubate for declining respiratory status Allergies Allergy/AdvReac Type Severity Reaction Status Date / Time No Known Allergies Allergy Verified 04/29/20 09:01 Home Medications Medication Instructions Recorded Confirmed Type multivitamin 1 tab PO QAM 09/26/18 04/29/20 History albuterol sulfate 90 mcg/actuation 1 puffs INH QID PRN #1 ea 08/30/19 04/29/20 Rx breath activated powder inhaler celecoxib 200 mg capsule 200 mg PO BID cap 08/30/19 04/29/20 History clopidogrel 75 mg tablet 75 mg PO DAILY #90 tab 09/04/19 04/29/20 Rx Portable Oxygen #1 ea 09/13/19 04/21/20 Rx famotidine 40 mg tablet 40 mg PO BID tab 03/19/20 04/29/20 History tamsulosin 0.4 mg capsule 0.4 mg PO QAM cap 03/19/20 04/29/20 History aspirin [Aspir-81] 81 mg PO HS 04/29/20 04/29/20 History atorvastatin 40 mg PO HS 04/29/20 04/29/20 History clindamycin phosphate 1 applic TOPICAL BID PRN 04/29/20 04/29/20 History dexamethasone 4 mg PO BID 04/29/20 04/29/20 History isosorbide mononitrate 15 mg PO HS 04/29/20 04/29/20 History metoclopramide HCl 5 mg PO BID 04/29/20 04/29/20 History umeclidinium-vilanterol [Anoro 1 inh INH QAM 04/29/20 04/29/20 History Ellipta] Past Med/Surg History Medical History Cachexia CAD (coronary artery disease) Chest pain Chronic cough Chronic hypoxemic respiratory failure 3L NC Cigar smoker Former, quit 07/2019 COPD (chronic obstructive pulmonary disease) Dyslipidemia Dyspnea on exertion Emphysema lung Fatigue Former cigarette smoker from age [age] GE reflux H/O arthritis History of myocardial infarction (~2012) History of syncope Hypoxemia Nephrolithiasis Non-small cell lung cancer (NSCLC) (09/28/19) Vomiting Weakness Surgical History History of coronary artery stent placement (~2012) History of hernia surgery x 2 History of hip surgery Left S/P bronchoscopy with biopsy 09/28/2019, 11/01/2019 (Dr. Villagran) Family History Mother , Passed age 87 of COPD/Emphysema/Heart (Heavy smoker) No problems noted. Father , Passed age 71 of alcoholism No problems noted. Brother No problems noted. Sister No problems noted. Sister , Passed age 19 of multiple complications from defects No problems noted. Sister , Passed in 50's of homicide No problems noted. 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 Feels Safe at Home: Yes Safety Concerns: Feels Safe At This Time Childhood Exposure to Second-Hand Smoke: Yes Diet Comment: "I have a hard time eating anything anymore due to taste changes" caffeine: Yes (1/2 cup of coffee/day ) during the past year weight has: decreased > 10 lbs Dental Care, Regularly: No Seatbelt Use: always Sunscreen Use: No Assistive Devices: Oxygen - Continuous Review of Systems Review of Systems: Constitutional:Endorses fever, chills, weakness Eyes: Denies vision change ENT: Denies ear pain, sore throat, sinus pain Cardiovascular: Denies chest pain, chest pressure, palpitations, extremity swelling Respiratory: see HPI Gastrointestinal: Denies abdominal pain, nausea, vomiting, constipation. Endorses diarrhea Genitourinary: Denies pain with urination, urinary urgency, urinary frequency. Endorse decreased urination. Musculoskeletal: Endorses chronic arthitis pain, denies new muscle/joint aches. Integumentary:Denies acute rash, lesions, bruising Neurological: Denies acute headache, numbness, tingling, focal weakness Physical Exam Physical Exam: General: A&O to name, place, and month. NAD. Cooperative. no mottling. HEENT: Atraumatic, normocephalic. PERLAA. EoM grossly intact. Pulm: Diminished air movement, bibasilar crackles. Symmetrical chest rise. No distress, but desaturates quickly on movement. Cardiac: tachycardic, -mrg. Radial pulses intact and symmetrical. no JVD. Abdominal: Nontender, nondistended, soft. BS present. Extremities: Warm, dry. PT/radial pulses itnact. Moving all extremities equally. Ankle plantarflexion/dorsiflexion intact bilaterally 5/5. Copping Machine Operator strength, elbow flexion/extension, shoulder internal/external rotation 5/5 bilaterally. Results & Data Results & Data ([facility]) Vital Signs (Past 12 Hours) Vital Signs Temp Pulse Resp BP Pulse Ox 04/29/20 10:01 118 H 29 H 90 04/29/20 10:00 120 H 29 H 115/69 88 L 04/29/20 09:46 116 H 13 101/54 L 91 04/29/20 09:45 117 H 24 91 04/29/20 09:31 116 H 21 113/70 92 04/29/20 09:30 96 04/29/20 09:16 121 H 16 90 04/29/20 09:15 120 H 29 H 113/70 92 04/29/20 09:01 109 H 25 H 95 04/29/20 09:00 110 H 26 H 120/70 95 04/29/20 08:46 115 H 24 94 04/29/20 08:45 119 H 23 119/72 93 04/29/20 08:31 118 H 25 H 92 04/29/20 08:30 113 H 24 105/75 92 04/29/20 08:15 113 H 25 H 127/77 96 04/29/20 08:02 75 L 04/29/20 08:01 124 H 23 90 04/29/20 08:00 114 H 22 114/71 92 04/29/20 07:51 93 04/29/20 07:46 113 H 27 H 90 04/29/20 07:45 106 H 26 H 106/56 L 91 04/29/20 07:43 113 H 28 H 115/75 91 04/29/20 07:30 116 H 24 94 04/29/20 07:15 102 H 23 04/29/20 07:00 75 L 04/29/20 06:56 37.9 C H 94 H 24 127/62 99 Supervising Physician Co-Signing Physician Notes I personally examined the patient and verified all alvarado points of history and exam, discussed case, and agree with decision making with Dr. Cavanaugh with the following additions/exceptions: This patient is a 75-year-old male with a history of lung cancer status post radiation and chemotherapy with metastatic lesion to the brain, COPD, CAD status post stents, BPH, GERD, who presents to the ER with acutely worsening shortness of breath and increased weakness as well as cough. He is on chronic oxygen at home at 2 L but was satting 75% on 2 L when he arrived and had a fever. He was on 10 L oxygen mask when I saw him. He denied any chest pain or abdominal pain or nausea. He was having diarrhea the last few days as well. He reported significant weakness and severe shortness of breath with minimal exertion. He was found to have bilateral infiltrates consistent with pneumonia on chest x- ray. He was tachycardic, febrile, hypoxic with normal blood pressure on admission. Later in the day, I went to see him again after his nurse informed me that his blood pressure was in the 80s over 50s and he was gasping for air. She had medicated him with both Ativan and morphine. When I saw him, he was fairly unresponsive and was sleeping, did not awake to sternal rub or loud verbal stimulus. He was tachypneic and mouth breathing on high flow nasal cannula. He was given a bolus of normal saline 250 mL's per hour. He also had spiked a much higher fever at that point and had been given Tylenol. I discussed his care again with his who had already spoken to palliative care earlier in the day. She was agreeable to transition to comfort measures if the patient continued to deteriorate overnight. History and ROS reviewed as above Vitals reviewed Gen: Alert awake oriented x2 when I initially saw him, obtunded the second time I saw him as above, with tachypnea and respiratory distress with minimal exertion HEENT: Anicteric sclerae, EOMI, PERRLA CV: Tachycardia, regular rhythm no mgr nl S1S2 Pulm: Bilateral wheezes, rhonchi, tachypnea Abd: +BS soft NT ND no masses or hernias Ext: No edema, no calf tenderness Skin: No rashes, warm/dry Neuro: Full strength throughout Laboratory values and imaging reviewed ECG reviewed 75-year-old male with history noted as above, here with severe sepsis with septic shock, pneumonia, acute respiratory failure with hypoxia in the setting of metastatic lung cancer. Admit and place on high flow nasal cannula versus CPAP Continue broad-spectrum antibiotics and follow cultures Appreciate pulmonology consultation and palliative care consultations -Will hold isosorbide and tamsulosin due to hypotension for now Bolus as needed to keep blood pressures with MAP greater than 65 Continue pulmonary toilet and oxygenation as needed Plan to transition to comfort care if patient not improving or deteriorates overnight-discussed with overnight physician team. Morphine and Ativan are already ordered for as needed use Resident Activity Tracking Resident Involvement: Resident Care Provided Care Provided: Adult Hospital Medicine (1) Non-small cell lung cancer (NSCLC) Laterality: right Qualified Code(s): C34.91 - Malignant neoplasm of unspecified part of right bronchus or lung (2) COPD (chronic obstructive pulmonary disease) Emphysema type: centrilobular (3) Pneumonia Laterality: bilateral Lung location: unspecified part of lung Pneumonia type: due to unspecified organism Qualified Code(s): J18.9 - Pneumonia, unspecified organism
--- NOTE | 2020-04-29 11:43 | Electrocardiogram Report ---
Test Reason : Blood Pressure : / mmHG Vent. Rate : 128 BPM Atrial Rate : 128 BPM P-R Int : 148 ms QRS Dur : 088 ms QT Int : 396 ms P-R-T Axes : 082 077 067 degrees QTc Int : 578 ms Poor data quality, interpretation may be adversely affected Sinus tachycardia with Premature supraventricular complexes and with occasional Premature ventricular complexes Biatrial enlargement Abnormal ECG When compared with ECG of 11-AUG-2012 09:46, Current rhythm is new Confirmed by Mitch Albright ([id number]) on 04/29/2020 11:43:37 AM Referred By: Confirmed By:Mitch Albright
[2020-04-29 12:13] LABS: iSTAT Arterial Blood Gas HCO3 27 meg/L (19-24); iSTAT Arterial Blood Gas pCO2 39 mmHg (35-46); iSTAT Arterial Blood Gas pH 7.44 (7.35-7.45); iSTAT Arterial Blood Gas pO2 57 mmHg (80-95); iSTAT Carbon Dioxide 28 mmol/L (24-31); iSTAT Hematocrit 32 % (42-52); iSTAT Hemoglobin 10.9 g/dl (14.0-18.0); iSTAT Potassium 3.4 mmol/L (3.3-5.0); iSTAT Sodium 137 mmol/L (135-144)
[2020-04-29] MEDS ORDERED: ONDANSETRON INJ 2 MG/ML 2 ML VIAL IV PRN (13:34)
[2020-04-29] MEDS: ALBUT/IPRATROP 3MG/0.5MG NEB 3 ML VIAL INH SCH ×2 (14:03→19:54)
--- NOTE | 2020-04-29 14:17 | Pulmonary Consultation ---
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 The differential is broad and would include infectious etiologies especially given his elevated procalcitonin however he is not febrile and his white blood cell count is normal although he is on immunotherapy and steroids. Durvulamab pulmonary toxicity is also a possibility. Atypical pulmonary edema and pulmonary hemorrhage would also be on the differential. The patient is too unstable to consider bronchoscopy at this point time as this would likely require intubation mechanical ventilation. The patient again reiterates that his CODE STATUS is DNR/DNI. Recommendations: 1. At this point time I would favor treating potentially reversible causes. We will place him on Solu-Medrol 125 mg IV every 8 for possible pulmonary durvalumab toxicity. Agree with checking a BNP. 2. Check Legionella urinary antigen. The patient is at risk for pneumocystis given chronic steroid therapy in the past. Will check LDH and galactomannan. Again the patient is not producing any sputum to allow for assessment of pneumocystis in the sputum and is too unstable to consider bronchoscopy. Could consider empiric trimethoprim sulfamethoxazole however at this point in time would see how he does clinically especially in light of family's request to pursue symptom control rather than aggressive interventions 3. Continue cefepime and vancomycin. 4. Would trend procalcitonin based on clinical response. 5. Transition to heated high flow oxygen therapy/Vapotherm and target oxygen saturations at or above 88%. Patient again reiterates his desire to be DO NOT RESUSCITATE DO NOT INTUBATE which I think is reasonable. 6. Could consider CT imaging of the chest to better characterize the pulmonary parenchyma however the patient appears too unstable at this point time to consider transporting to the CT scanner and I am not sure it would change manage ment acutely. 7. COPD: The patient has advanced obstructive lung disease. He is somewhat bronchospastic currently. Steroids should be beneficial. We will also place on nebulized Perforomist and budesonide as I think the patient's respiratory status would not allow for metered-dose inhalers A total of 50 minutes critical care time was spent in evaluation management of this patient including discussion with palliative care, bedside hospitalist, and bedside nurse as well as patient. Patient has significant hypoxemic respiratory failure and is at risk of . Laterality: bilateral Lung location: unspecified part of lung Pneumonia type: due to unspecified organism Qualified Code(s): J18.9 - Pneumonia, unspecified organism History of Present Illness Attending Physician: Claudine Gonzales MD History of Present Illness Asked by hospitalist to assist in management of this patient with stage IV metastatic non-small cell lung cancer currently on chemotherapy admitted with hypoxemic respiratory failure and pulmonary infiltrates. History is obtained from discussion with the hospitalist, review of electronic medical record, and interview the patient. Patient is a 75-year-old male who is followed by Dr. Villagran in the outpatient setting. The patient was last seen a few days ago and apparently was doing reasonably well. He has advanced obstructive lung disease and is chronically dependent on supplemental oxygen. Patient had an abnormal CT scan noted in July 2019. This favored pneumonia however on follow-up imaging it failed to clear. He underwent bronchoscopy and had cell clusters consistent with non-small cell carcinoma. PET scan revealed upper lobe and lower lobe uptake as well as mediastinal nodes with moderate FDG uptake. He eventually underwent endobronchial ultrasound with transbronchial needle aspiration of the level 4R lymph node which revealed non-small cell carcinoma favoring squamous cell carcinoma. At that point time he was staged as 3B disease. He elected to pursue chemoradiation and received carboplatin paclitaxel in November 2019 and underwent repeat imaging in February 2020 demonstrating minimal response. At that point time it was recommended initiation of durvalumab which was initiated March 04, 2020. The end of February he developed mental status changes an MRI of the brain demonstrated a 21 mm left parietal mass with vasogenic edema consistent with metastatic disease. He was seen by radiation oncology and underwent 5 fractions of radiation therapy. Cognitive function had been stable however the patient continues to feel quite poorly with his durvalumab therapy. He presented to the emergency room today with complaints of weakness, chills, and subjective fevers. He has had significant diarrhea as well. He had intermittent cough. He was found to be hypoxemic in the emergency room. Interestingly, the patient had been on steroids for his VINEYARDIST metastatic disease which were recently tapered off. His x-ray demonstrated multifocal airspace opacities without consolidation. He was placed back on steroids and antibiotics were initiated and is been admitted to the hospitalist service. Unfortunately despite high flow facemask he has oxygen saturations in the mid 80s. Patient confirmed his DNR/DNI status and does not want resuscitative efforts. According to the hospitalist, the family had been in discussions about discontinuing any additional chemotherapy and transitioning to full hospice but unfortunately those arrangements have not yet been made Allergies Allergy/AdvReac Type Severity Reaction Status Date / Time No Known Allergies Allergy Verified 04/29/20 09:01 Home Medications Medication Instructions Recorded Confirmed Type multivitamin 1 tab PO QAM 09/26/18 04/29/20 History albuterol sulfate 90 mcg/actuation 1 puffs INH QID PRN #1 ea 08/30/19 04/29/20 Rx breath activated powder inhaler celecoxib 200 mg capsule 200 mg PO BID cap 08/30/19 04/29/20 History clopidogrel 75 mg tablet 75 mg PO DAILY #90 tab 09/04/19 04/29/20 Rx Portable Oxygen #1 ea 09/13/19 04/21/20 Rx famotidine 40 mg tablet 40 mg PO BID tab 03/19/20 04/29/20 History tamsulosin 0.4 mg capsule 0.4 mg PO QAM cap 03/19/20 04/29/20 History aspirin [Aspir-81] 81 mg PO HS 04/29/20 04/29/20 History atorvastatin 40 mg PO HS 04/29/20 04/29/20 History clindamycin phosphate 1 applic TOPICAL BID PRN 04/29/20 04/29/20 History dexamethasone 4 mg PO BID 04/29/20 04/29/20 History isosorbide mononitrate 15 mg PO HS 04/29/20 04/29/20 History metoclopramide HCl 5 mg PO BID 04/29/20 04/29/20 History umeclidinium-vilanterol [Anoro 1 inh INH QAM 04/29/20 04/29/20 History Ellipta] Patient History Medical History (Updated 04/29/20 @ 14:17 by Preston Valdez MD) Cachexia CAD (coronary artery disease) Chest pain Chronic cough Chronic hypoxemic respiratory failure 3L NC Cigar smoker Former, quit 07/2019 COPD (chronic obstructive pulmonary disease) Dyslipidemia Dyspnea on exertion Emphysema lung Fatigue Former cigarette smoker from age [age] GE reflux H/O arthritis History of myocardial infarction (~2012) History of syncope Hypoxemia Nephrolithiasis Non-small cell lung cancer (NSCLC) (09/28/19) Vomiting Weakness Surgical History History of coronary artery stent placement (~2012) History of hernia surgery x 2 History of hip surgery Left S/P bronchoscopy with biopsy 09/28/2019, 11/01/2019 (Dr. Villagran) Family History Mother , Passed age 87 of COPD/Emphysema/Heart (Heavy smoker) No problems noted. Father , Passed age 71 of alcoholism No problems noted. Brother No problems noted. Sister No problems noted. Sister , Passed age 19 of multiple complications from defects No problems noted. Sister , Passed in 50's of homicide No problems noted. 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 No changes Physical Exam Constitutional: + acute distress, + ill appearing and + cachectic Neck: trachea midline, no thyromegaly Respiratory: + tachypneic and + prolonged expiratory phase Auscultation: + rales and + wheezes Cardiovascular: Rate/Rhythm: + tachycardic Heart Sounds: normal S1 and normal S2; no murmur Extremities: no edema Gastrointestinal (Abdomen): normal bowel sounds, soft, nontender, no hepatosplenomegaly Musculoskeletal: Extremities: extremities normal to inspection Skin: no rashes, warm and dry Neurologic: Nonfocal exam Lymphatic: no cervical lymphadenopathy Results & Data Results & [facility]) Vital Signs (Past 12 Hours) Vital Signs Temp Pulse Pulse Resp BP BP Pulse Ox 04/29/20 13:34 36.9 C 96 H 24 114/72 79 L 04/29/20 12:45 116 H 22 133/80 90 04/29/20 12:31 114 H 27 H 131/78 90 04/29/20 12:30 112 H 33 H 89 L 04/29/20 12:15 120 H 25 H 117/64 91 04/29/20 12:12 86 L 04/29/20 12:08 22 90 04/29/20 12:01 113 H 24 90 04/29/20 12:00 114 H 27 H 113/69 90 04/29/20 11:46 110 H 24 88 L 04/29/20 11:45 113 H 34 H 120/66 87 L 04/29/20 11:31 103 H 30 H 04/29/20 11:30 85 34 H 143/64 H 04/29/20 11:16 99 H 24 88 L 04/29/20 11:15 113 H 26 H 116/67 87 L 04/29/20 11:01 109 H 27 H 92 04/29/20 11:00 100 H 28 H 118/73 90 04/29/20 10:46 101 H 27 H 90 04/29/20 10:45 105 H 24 122/72 88 L 04/29/20 10:31 108 H 21 91 04/29/20 10:30 107 H 22 128/79 92 04/29/20 10:16 115 H 19 93 04/29/20 10:15 112 H 24 118/66 93 04/29/20 10:01 118 H 29 H 90 04/29/20 10:00 120 H 29 H 115/69 88 L 04/29/20 09:46 116 H 13 101/54 L 91 04/29/20 09:45 117 H 24 91 04/29/20 09:31 116 H 21 113/70 92 04/29/20 09:30 96 04/29/20 09:16 121 H 16 90 04/29/20 09:15 120 H 29 H 113/70 92 04/29/20 09:01 109 H 25 H 95 04/29/20 09:00 110 H 26 H 120/70 95 04/29/20 08:46 115 H 24 94 04/29/20 08:45 119 H 23 119/72 93 04/29/20 08:31 118 H 25 H 92 04/29/20 08:30 113 H 24 105/75 92 04/29/20 08:15 113 H 25 H 127/77 96 04/29/20 08:02 75 L 04/29/20 08:01 124 H 23 90 04/29/20 08:00 114 H 22 114/71 92 04/29/20 07:51 93 04/29/20 07:46 113 H 27 H 90 04/29/20 07:45 106 H 26 H 106/56 L 91 04/29/20 07:43 113 H 28 H 115/75 91 04/29/20 07:30 116 H 24 94 04/29/20 07:15 102 H 23 04/29/20 07:00 75 L 04/29/20 06:56 37.9 C H 94 H 24 127/62 99 Pulse Ox 04/29/20 13:34 79 L 04/29/20 12:45 04/29/20 12:31 04/29/20 12:30 04/29/20 12:15 04/29/20 12:12 04/29/20 12:08 04/29/20 12:01 04/29/20 12:00 04/29/20 11:46 04/29/20 11:45 04/29/20 11:31 04/29/20 11:30 04/29/20 11:16 04/29/20 11:15 04/29/20 11:01 04/29/20 11:00 04/29/20 10:46 04/29/20 10:45 04/29/20 10:31 04/29/20 10:30 04/29/20 10:16 04/29/20 10:15 04/29/20 10:01 04/29/20 10:00 04/29/20 09:46 04/29/20 09:45 04/29/20 09:31 04/29/20 09:30 04/29/20 09:16 04/29/20 09:15 04/29/20 09:01 04/29/20 09:00 04/29/20 08:46 04/29/20 08:45 04/29/20 08:31 04/29/20 08:30 04/29/20 08:15 04/29/20 08:02 04/29/20 08:01 04/29/20 08:00 04/29/20 07:51 04/29/20 07:46 04/29/20 07:45 04/29/20 07:43 04/29/20 07:30 04/29/20 07:15 04/29/20 07:00 04/29/20 06:56 Laboratory Results 04/29/20 07:40 04/29/20 07:40 INR 1.0 Blood gas showed a pH of 7.44 with a PCO2 of 39 and PO2 of 57 Initial lactate of 2.3 Troponin 0 0.246 Procalcitonin 7.6 PG Care Time/CCT Total # of Minutes Spent Total Time Spent with Patient: Total time spent is greater than 50% in coordination of care (as documented) at patient's floor/unit and/or counseling patient: Coding Level of Care Code 29446 Initial Inpt Care Lvl 3 Diagnoses Acute hypoxemic respiratory failure J96.01 COPD (chronic obstructive pulmonary disease) J44.9 Emphysema type: centrilobular Pneumonia J18.9 Laterality: bilateral Lung location: unspecified part of lung Pneumonia type: due to unspecified organism Time Spent (min) 50 Comment Code 79992, 50 minutes critical care time
[2020-04-29] MEDS: NSS + 20MEQ KCL 20 MEQ/1,000 ML BAG IV SCH (14:25)
[2020-04-29] MEDS: CEFEPIME 2,000 MG in SYRINGE 0 ML IV SCH ×2 (14:25→22:33)
--- NOTE | 2020-04-29 14:47 | Pharmacy Report ---
Pharmacy Abx Dose Short Note - Date of Service April 29, 2020 - Assessment & Plan Assessment 75 year old M to receive VANCOMYCIN IV as well as CEFEPIME for treatment of sepsis, community acquired pneumonia with risk factors for resistant organism Pharmacy has been consulted to dose Vancomycin Patient does have a h/o NSCLCA with brain mets, on checkpoint inh therapy as well as steroids BMI 19.9 and reported h/o cachexia Procal and lactate elevated BLCX's ordered, I've added a MRSA nasal swab SCr only mildly elevated at 0.99 today, baseline appears to be 0.7-0.9 Plan Vancomycin * Patient does appear to be a candidate for AUC dosing * Loading dose of 1500mg (~25mg/kg) given in ED * Maint dose: 750mg (~12.3mg/kg) IV Q 12 hrs * Goal AUC:AZRA 400-600 or trough level 15 to 20 mcg/mL * Will check trough level with 3rd or 4th maint dose if therapy to continue - will await results of MRSA nasal swab Pharmacy will continue to follow and will adjust dose/frequency as necessary. Thank you.
[2020-04-29 14:56] LABS: Appearance Urine Clear (Clear); Bacteria Urine Automated Negative (Negative); Bilirubin Urine Negative (Negative); Blood Urine Trace (Negative); Color Urine Yellow; Glucose Urine UA Negative (Negative); Ketones Urine Negative (Negative); Leukocyte Esterase Urine Negative (Negative); Nitrite Urine Negative (Negative); Protein Urine Trace (Negative); RBC Urine Automated 0-4 /hpf (0-4); Specific Gravity Urine 1.019 (1.000-1.030); Urobilinogen Urine Negative (Negative)
[2020-04-29 14:57] LABS: Troponin I 0.231 ng/ml (0-0.045)
[2020-04-29] MEDS ORDERED: LORazepam 0.5 MG/1 ML VIAL IV PRN (15:26)
[2020-04-29] MEDS ORDERED: GLYCOPYRROLATE 0.2 MG/ML VIAL IM PRN (15:26)
[2020-04-29] MEDS: MoRPHine SULFATE 2 MG/ML CARP IV PRN (15:42)
[2020-04-29] MEDS: MAGNESIUM SULFATE / D5W 1 GM/100 ML BAG IV SCH ×2 (15:43→17:53)
[2020-04-29] MEDS: HEPARIN SOD 5,000 UNIT/0.5 ML VIAL SQ SCH ×2 (15:43→22:34)
--- NOTE | 2020-04-29 15:43 | Palliative Care Consultation ---
Date of Consultation April 29, 2020 Assessment & Plan (1) Dyspnea: He is being treated for pneumonia and is on high flow oxygen at this time. I spoke with his about goals of care. He has a living will and is very clear that he would not want intubation or CPR. He is agreeable to bipap if needed for support and comfort. I have ordered low dose morphine as needed for relief of his air hunger per his 's request. (2) Palliative care encounter: Mrs. Bueno and I met to discuss plan of care in more detail. She understands that he is at the end stage of his lung cancer and that he is likely to within days. She would ideally like for him to be at home with hospice care but does want to have him be comfortable and have a trial of increased steroids and antibiotic therapy. We discussed increased lethargy with opioid therapy and she and Rich are both ok with this if it relieves his air hunger. We did discuss that he may within the next day or two even with treatment and they accept this. If he were to stabilize, plan would be home with hospice. Palliative care will follow. (3) Acute hypoxemic respiratory failure: (4) Lung cancer metastatic to brain: (5) COPD (chronic obstructive pulmonary disease): Emphysema type: centrilobular History of Present Illness Reason for Consultation: goals of care, symptom management Requesting Physician: Dr. Elizabeth Attending Physician: Claudine Gonzales MD History of Present Illness 75 yo gentleman diagnosed with nonsmall cell lung cancer in July of 2019. He had chemoradiation therapy but was found in February to have persistent disease with new brain metastasis. He had brain radiation and had been on immunotherapy but has decided against further treatment. He had been on high dose decadron for vasogenic edema associated with brain metastasis. He recently had dose decrease from 16mg/day to 8mg/day. Since Tuesday he has had extreme weakness, confusion, sweats, chills and increased shortness of breath. He has elevated lactic acid and patchy infiltrate on CXR. He also has transaminitis and thrombocytopenia, likely therapy related. We have been consulted to assist with goals of care. At this time, he is somnolent but arousable. He has rigors and visible respiratory distress. He complains of feeling short of breath and cold. He denies pain. Allergies Allergy/AdvReac Type Severity Reaction Status Date / Time No Known Allergies Allergy Verified 04/29/20 09:01 Home Medications Medication Instructions Recorded Confirmed Type multivitamin 1 tab PO QAM 09/26/18 04/29/20 History albuterol sulfate 90 mcg/actuation 1 puffs INH QID PRN #1 ea 08/30/19 04/29/20 Rx breath activated powder inhaler celecoxib 200 mg capsule 200 mg PO BID cap 08/30/19 04/29/20 History clopidogrel 75 mg tablet 75 mg PO DAILY #90 tab 09/04/19 04/29/20 Rx Portable Oxygen #1 ea 09/13/19 04/21/20 Rx famotidine 40 mg tablet 40 mg PO BID tab 03/19/20 04/29/20 History tamsulosin 0.4 mg capsule 0.4 mg PO QAM cap 03/19/20 04/29/20 History aspirin [Aspir-81] 81 mg PO HS 04/29/20 04/29/20 History atorvastatin 40 mg PO HS 04/29/20 04/29/20 History clindamycin phosphate 1 applic TOPICAL BID PRN 04/29/20 04/29/20 History dexamethasone 4 mg PO BID 04/29/20 04/29/20 History isosorbide mononitrate 15 mg PO HS 04/29/20 04/29/20 History metoclopramide HCl 5 mg PO BID 04/29/20 04/29/20 History umeclidinium-vilanterol [Anoro 1 inh INH QAM 04/29/20 04/29/20 History Ellipta] Patient History Medical History Cachexia CAD (coronary artery disease) Chest pain Chronic cough Chronic hypoxemic respiratory failure 3L NC Cigar smoker Former, quit 07/2019 COPD (chronic obstructive pulmonary disease) Dyslipidemia Dyspnea on exertion Emphysema lung Fatigue Former cigarette smoker from age [age] GE reflux H/O arthritis History of myocardial infarction (~2012) History of syncope Hypoxemia Nephrolithiasis Non-small cell lung cancer (NSCLC) (09/28/19) Vomiting Weakness Surgical History History of coronary artery stent placement (~2012) History of hernia surgery x 2 History of hip surgery Left S/P bronchoscopy with biopsy 09/28/2019, 11/01/2019 (Dr. Villagran) Family History Mother , Passed age 87 of COPD/Emphysema/Heart (Heavy smoker) No problems noted. Father , Passed age 71 of alcoholism No problems noted. Brother No problems noted. Sister No problems noted. Sister , Passed age 19 of multiple complications from defects No problems noted. Sister , Passed in 50's of homicide No problems noted. 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 Feels Safe at Home: Yes Childhood Exposure to Second-Hand Smoke: Yes Diet Comment: "I have a hard time eating anything anymore due to taste changes" caffeine: Yes (1/2 cup of coffee/day ) during the past year weight has: decreased > 10 lbs Dental Care, Regularly: No Seatbelt Use: always Sunscreen Use: No Assistive Devices: Oxygen - Continuous Review of Systems Review of Systems: [place] Symptom Assessment Scale Pain 0/3 Dyspnea 2/3 Nausea 0/3 Anxiety 1/3 Drowsiness 1/3 Palliative Performance Score 30% Physical Exam Constitutional: + ill appearing and + thin; + uncomfortable ENMT: Mouth: + dry oral mucous membranes Respiratory: + labored breathing, + uses accessory muscles and + tachypneic Cardiovascular: Rate/Rhythm: regular rate and regular rhythm Extremities: no edema Gastrointestinal (Abdomen): Inspection/Auscultation: abdomen not distended Musculoskeletal: Extremities: + muscle atrophy Psychiatric: Orientation: oriented x 3 Results & Data ([facility]) Vital Signs (Past 12 Hours) Vital Signs Temp Pulse Pulse Pulse Resp BP BP 04/29/20 14:12 116 H 26 H 04/29/20 14:09 106 H 26 H 04/29/20 13:34 98.4 F 96 H 24 114/72 04/29/20 12:45 116 H 22 133/80 04/29/20 12:31 114 H 27 H 131/78 04/29/20 12:30 112 H 33 H 04/29/20 12:15 120 H 25 H 117/64 04/29/20 12:12 04/29/20 12:08 22 04/29/20 12:01 113 H 24 04/29/20 12:00 114 H 27 H 113/69 04/29/20 11:46 110 H 24 04/29/20 11:45 113 H 34 H 120/66 04/29/20 11:31 103 H 30 H 04/29/20 11:30 85 34 H 143/64 H 04/29/20 11:16 99 H 24 04/29/20 11:15 113 H 26 H 116/67 04/29/20 11:01 109 H 27 H 04/29/20 11:00 100 H 28 H 118/73 04/29/20 10:46 101 H 27 H 04/29/20 10:45 105 H 24 122/72 04/29/20 10:31 108 H 21 04/29/20 10:30 107 H 22 128/79 04/29/20 10:16 115 H 19 04/29/20 10:15 112 H 24 118/66 04/29/20 10:01 118 H 29 H 04/29/20 10:00 120 H 29 H 115/69 04/29/20 09:46 116 H 13 101/54 L 04/29/20 09:45 117 H 24 04/29/20 09:31 116 H 21 113/70 04/29/20 09:30 04/29/20 09:16 121 H 16 04/29/20 09:15 120 H 29 H 113/70 04/29/20 09:01 109 H 25 H 04/29/20 09:00 110 H 26 H 120/70 04/29/20 08:46 115 H 24 04/29/20 08:45 119 H 23 119/72 04/29/20 08:31 118 H 25 H 04/29/20 08:30 113 H 24 105/75 04/29/20 08:15 113 H 25 H 127/77 04/29/20 08:02 04/29/20 08:01 124 H 23 04/29/20 08:00 114 H 22 114/71 04/29/20 07:51 04/29/20 07:46 113 H 27 H 04/29/20 07:45 106 H 26 H 106/56 L 04/29/20 07:43 113 H 28 H 115/75 04/29/20 07:30 116 H 24 04/29/20 07:15 102 H 23 04/29/20 07:00 04/29/20 06:56 100.2 F H 94 H 24 127/62 Pulse Ox Pulse Ox 04/29/20 14:12 92 04/29/20 14:09 92 04/29/20 13:34 79 L 79 L 04/29/20 12:45 90 04/29/20 12:31 90 04/29/20 12:30 89 L 04/29/20 12:15 91 04/29/20 12:12 86 L 04/29/20 12:08 90 04/29/20 12:01 90 04/29/20 12:00 90 04/29/20 11:46 88 L 04/29/20 11:45 87 L 04/29/20 11:31 04/29/20 11:30 04/29/20 11:16 88 L 04/29/20 11:15 87 L 04/29/20 11:01 92 04/29/20 11:00 90 04/29/20 10:46 90 04/29/20 10:45 88 L 04/29/20 10:31 91 04/29/20 10:30 92 04/29/20 10:16 93 04/29/20 10:15 93 04/29/20 10:01 90 04/29/20 10:00 88 L 04/29/20 09:46 91 04/29/20 09:45 91 04/29/20 09:31 92 04/29/20 09:30 96 04/29/20 09:16 90 04/29/20 09:15 92 04/29/20 09:01 95 04/29/20 09:00 95 04/29/20 08:46 94 04/29/20 08:45 93 04/29/20 08:31 92 04/29/20 08:30 92 04/29/20 08:15 96 03/09/21 08:02 75 L 04/29/20 08:01 90 04/29/20 08:00 92 04/29/20 07:51 93 04/29/20 07:46 90 04/29/20 07:45 91 04/29/20 07:43 91 04/29/20 07:30 94 04/29/20 07:15 04/29/20 07:00 75 L 04/29/20 06:56 99 PG Care Time/CCT Total # of Minutes Spent Total Time Spent with Patient: Total time spent is greater than 50% in coordination of care (as documented) at patient's floor/unit and/or counseling patient: total time spent 70 minutes with more than 50% of time spent of symptom sabino gement, goals of care, and coordination of care. Coding Level of Care Code 13485 Inpt Consult Level 4 Diagnoses Dyspnea R06.00 Palliative care encounter Z51.5 Acute hypoxemic respiratory failure J96.01 Lung cancer metastatic to brain C34.90; C79.31 COPD (chronic obstructive pulmonary disease) J44.9 Emphysema type: centrilobular
[2020-04-29] MEDS ORDERED: ACETAMINOPHEN 1,000 MG/100 ML VIAL IV PRN (16:01)
[2020-04-29] MEDS ORDERED: Nursing to Pharmacy Communication SCH (17:15)
[2020-04-29] MEDS: methylPREDNISolone 125 MG in SYRINGE 0 ML IV SCH (17:53)
[2020-04-29] MEDS ORDERED: SODIUM CHLORIDE 0.9% 1000ML 250 ML IV ONE (18:16)
[2020-04-29] MEDS: FORMOTEROL 20 MCG/2 ML VIAL NEB SCH (19:54)
[2020-04-29] MEDS: BUDESONIDE 0.5 MG/2 ML VIAL (PULMICORT) NEB SCH (19:54)
[2020-04-29] MEDS ORDERED: OPTIRAY 320 125ml IV ONE (20:54)
[2020-04-29] MEDS ORDERED: ISOSORBIDE MONO EXTENDED REL 30 MG TABCR PO SCH (21:00)
[2020-04-29] MEDS ORDERED: methylPREDNISolone 125 MG in SYRINGE 0 ML IV SCH (22:00)
[2020-04-29] MEDS: ASPIRIN 81 MG ECTAB PO SCH (22:32)
[2020-04-29] MEDS: FAMOTIDINE 40 MG TABLET PO SCH (22:33)
[2020-04-29] MEDS: SULFAMETHOXAZOLE/TRIMETHOPRIM DS 800/160MG TAB PO SCH (22:33)
[2020-04-29] MEDS: VANCOMYCIN HCL 750 MG in SODIUM CHLORIDE 0.9% 250 ML IV SCH (22:33)
[2020-04-29] MEDS: ATORVASTATIN 40 MG TAB PO SCH (22:33)
--- NOTE | 2020-04-29 23:48 | Billing Data ---
Date of Service April 29, 2020 Coding Level of Care Code 35632 Initial Inpt Care Lvl 3
[2020-04-30] MEDS: ALBUT/IPRATROP 3MG/0.5MG NEB 3 ML VIAL INH SCH ×4 (00:39→19:52)
[2020-04-30] MEDS: methylPREDNISolone 125 MG in SYRINGE 0 ML IV SCH ×3 (02:18→18:40)
[2020-04-30] MEDS: NSS + 20MEQ KCL 20 MEQ/1,000 ML BAG IV SCH (04:11)
[2020-04-30] MEDS: HEPARIN SOD 5,000 UNIT/0.5 ML VIAL SQ SCH ×3 (05:54→22:13)
[2020-04-30] MEDS: CEFEPIME 2,000 MG in SYRINGE 0 ML IV SCH ×2 (05:54→13:47)
[2020-04-30 07:15] LABS: Hematocrit (blood only) 34.3 % (42-52); Hemoglobin 11.9 g/dL (14.0-18.0); Mean Corpuscular Hemoglobin 32.3 pg (25-34); Mean Corpuscular Hgb Conc 34.7 g/dL (32-36); Mean Corpuscular Volume 93.2 fL (80-100); RDW Coefficient of Variation 16.1 % (11.5-14.5); RDW Standard Deviation 54.4 fL (36.4-46.3); Red Blood Count 3.68 M/uL (4.7-6.1); White Blood Count 4.95 K/uL (4.8-10.8)
[2020-04-30] MEDS: FORMOTEROL 20 MCG/2 ML VIAL NEB SCH ×2 (07:16→19:49)
[2020-04-30] MEDS: BUDESONIDE 0.5 MG/2 ML VIAL (PULMICORT) NEB SCH ×2 (07:16→19:49)
[2020-04-30 07:49] LABS: Albumin Level 1.7 gm/dl (3.4-5.0); BUN Creatinine Ratio 39.6 (10-20); Bilirubin Direct 0.2 mg/dl (0-0.2); Bilirubin,Total 0.6 mg/dl (0.2-1); Calcium 8.2 mg/dl (8.5-10.1); Creatinine Clr Calc Pharmacy 135.3 ml/min; Est GFR (African American) 128.9; Est GFR (Non-African American) 111.3; Mean Platelet Volume 9.4 fL (7.4-10.4); Phosphorus 2.9 mg/dl (2.5-4.9); Platelet Count 51 K/uL (130-400); Potassium 3.8 mmol/L (3.5-5.1); Total Protein 5.4 gm/dl (6.4-8.2)
--- NOTE | 2020-04-30 07:52 | Hospitalist Progress Note ---
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 The differential is broad and would include infectious etiologies especially given his elevated procalcitonin however he is not febrile and his white blood cell count is normal although he is on immunotherapy and steroids. Durvulamab pulmonary toxicity is also a possibility. Atypical pulmonary edema and pulmonary hemorrhage would also be on the differential. The patient is too unstable to consider bronchoscopy at this point time as this would likely require intubation mechanical ventilation. The patient again reiterates that his CODE STATUS is DNR/DNI. Acute Hypoxic Respiratory Failure Suspect 2/2 LLL PNA. requiring vapotherm high flow ooxygen - increase LLL opacity on CXR compared to prior - COVID with repeat cepheid panel negative x2 for COVID, negative for flu vancomycin/ cefepime - Blood cultures negative to date , Sputum cultures not collected - Continue NSS 120cc/hr - Hypoxia disproportionate to XR finding with tachypnea and coagulopathy risk 2/2 underlying malignancy; CTA (2) Sepsis: As above (3) Hypoxia: multifactoral, has severe copd, now new pneumonia, and possible pulmonary toxicity Continue high flow nasal cannula oxygen mask to keep pulse ox greater than 88- 90% Scheduled duo nebs He does not desire intubation (4) Elevated troponin: not LA consider Demand ischemia (5) Non-small cell lung cancer (NSCLC): pt has history of metastatic lesions to brain CTA suggests continued pulmonary lesions Palliative care has been in discussion with family, it is unlikely he will have rapid improvement to deescalate from vapo therm for some time it able to at all (6) Hypomagnesemia: replete (7) COPD (chronic obstructive pulmonary disease): (8) Thrombocytopenia: continues (9) DVT prophylaxis: heparin sc tid Admission and Anticipated Discharge Date Admission Date: April 29, 2020 Subjective Is an awake and conversant. He is requiring Vapotherm oxygen at a fairly high supplemental rate 40 L 60% to sustain his oxygen saturations. His multiple pulmonary issues including metastatic lung cancer and a concurrent pneumonia on top of COPD that typically is with chronic oxygen supplementation. Discussions have been had regarding palliative care. The patient says he just wants to go home and however he is not ready to quit fighting certainly getting mixed messages. The patient's is been in conversation with Dr. Sebastian our palliative care physician. The patient cannot go home with such a high oxygen supplementation rate and likely if we would try to transition him to nasal cannula he would not sustain his life for very long Review of Systems Review of Systems: moderate distress and fatigue no headache, blurry or double vision no speech or swallowing issues no chest pain, pressure or palpitations significant shortness of breath, non productive cough or wheezes no abdominal pain, nausea or vomiting, diarrhea or constipation no dysuria, hematuria or frequency no focal joint pain or swelling no back pain, CVA tenderness or radicular pain no bruising, bleeding or rashes no focal signs of weakness or numbness or altered sensation no complaints of anxiety or depression.. Physical Exam Physical Exam: The patient appeared chronically ill short of breath, and fatigued Vital signs as documented. Head exam is normocephalic atraumatic no scleral icterus Neck is without JVD, thyromegaly, or carotid bruits. Lungs are very diminished with poor air movement Cardiac exam, Rhythm is regular.. BEATRICE Abdominal exam reveals normal bowel sounds, soft non tender, no masses Extremities are nonedematous and both pedal pulses are present Neurologic exam is alert and oriented, very weak over all Skin is without bruises or rashes Psychologically is without concerns for anxiety or depression Results & Data Results & Data ([facility]) Vital Signs (Past 12 Hours) Vital Signs Temp Pulse Pulse Resp BP Pulse Ox 04/30/20 07:19 110 H 24 94 04/30/20 03:24 97.5 F L 110 H 18 94/60 L 94 04/30/20 02:48 113 H 20 92 04/30/20 00:41 116 H 20 97 04/29/20 23:59 108 H 04/29/20 23:48 98.1 F 104 H 20 122/62 94 04/29/20 22:28 110 H 23 97 04/29/20 21:14 106 H 33 H 91 04/29/20 19:54 106 H 22 90 PG Care Time/CCT Total # of Minutes Spent Total Time Spent with Patient: Total time spent is greater than 50% in coordination of care (as documented) at patient's floor/unit and/or counseling patient: Coding Level of Care Code 51573 Subseq Hosp Care Lvl 3 Diagnoses Pneumonia J18.9 Laterality: bilateral Lung location: unspecified part of lung Pneumonia type: due to unspecified organism Sepsis A41.9 Hypoxia R09.02 Elevated troponin R77.8 Non-small cell lung cancer (NSCLC) C34.91 Laterality: right Hypomagnesemia E83.42 COPD (chronic obstructive pulmonary disease) J44.9 Emphysema type: centrilobular Thrombocytopenia D69.6 DVT prophylaxis Z29.9 (1) Non-small cell lung cancer (NSCLC) Laterality: right Qualified Code(s): C34.91 - Malignant neoplasm of unspecified part of right bronchus or lung (2) COPD (chronic obstructive pulmonary disease) Emphysema type: centrilobular (3) Pneumonia Laterality: bilateral Lung location: unspecified part of lung Pneumonia type: due to unspecified organism Qualified Code(s): J18.9 - Pneumonia, unspecified organism
[2020-04-30 08:02] LABS: Immature Granulocytes # (auto) 0.07 K/uL (0.00-0.02); Immature Granulocytes % (auto) 1.4 %; Monocytes # (auto) 0.06 K/uL (0.11-0.59); Monocytes % (auto) 1.2 %; Neutrophils # (auto) 4.72 K/uL (1.4-6.5); Neutrophils % (auto) 95.4 %
--- NOTE | 2020-04-30 08:13 | CT Scan Report ---
CT angio chest PE protocol CT DOSE: 358.37 mGy.cm HISTORY: 75 years-old Male with PE. Acute shortness of breath with respiratory failure. TECHNIQUE: Multiple CTA images of the chest were obtained after the intravenous administration of 117 ml Optiray 320. Coronal and sagittal MIPS were obtained from the axial data set and were submitted for review. All measurements were obtained according to NASCET criteria. A dose lowering technique w as utilized adhering to the principles of ALARA. COMPARISON: Chest CT 02/27/2020 FINDINGS: CTA: The heart is upper limits of normal in size. There is no pericardial effusion. Moderate coronary marga ry calcifications. Moderate calcified plaque of the thoracic aorta with patency of the imaged great v essels. No thoracic aortic aneurysm or dissection. The pulmonary arterial tree is opacified to level of the proximal segmental branches. The distal segmental and subsegmental branches are not well evalu ated secondary to respiratory motion artifact. No pulmonary emboli are identified. CT CHEST: Unremarkable thyroid. There is no adenopathy identified. Trace pleural effusions. Severe emphysema wi th chronic fibrosis. Bronchial wall thickening suggestive of bronchitis. Multifocal bibasilar predomi nant airspace opacities are new from the comparison chest CT. Subpleural irregular consolidation of t he lateral right upper lobe measuring 6.0 x 1.6 x 1.5 cm appears generally stable from comparison. Th e previously noted irregular 1 cm right lower lobe pulmonary nodule is obscured by consolidation. Int ralobular septal thickening. Central airways are patent. No pneumoperitoneum. No acute process of the imaged upper abdomen. Hepatic steatosis. Unremarkable so ft tissues. Degenerative changes of the shoulders and spine. IMPRESSION: 1. Limited exam secondary to respiratory motion artifact. No pulmonary emboli are identified. 2. Interval development of bilateral multilobar distribution of groundglass and consolidative opaciti es suggestive of multifocal pneumonia. A component of superimposed pulmonary edema would be difficult to exclude. 3. Trace pleural effusions. 4. Subpleural consolidation versus mass of the right upper lobe appears stable to slightly decreased in size measuring up to 6.0 cm. 5. Previously noted 1 cm irregular nodule of the right lower lobe is obscured by the aforementioned c onsolidation. 6. Severe emphysema with bronchitis. 7. No adenopathy. ACT 112: Negative or not required by law. The above report was generated using voice recognition software. It may contain grammatical, syntax o r spelling errors. Electronically signed by: George Ventrua M.D. 04/30/2020 8:11 AM
[2020-04-30] MEDS: UMECLIDINIUM/VILANTEROL 62.5/25MCG 7 PUFFS/INHALER INH SCH (08:14)
[2020-04-30] MEDS: SULFAMETHOXAZOLE/TRIMETHOPRIM DS 800/160MG TAB PO SCH ×2 (08:14→20:08)
[2020-04-30] MEDS: CLOPIDOGREL BISULFATE 75 MG TAB PO SCH (08:15)
[2020-04-30] MEDS: FAMOTIDINE 40 MG TABLET PO SCH ×2 (08:15→20:07)
[2020-04-30] MEDS ORDERED: TAMSULOSIN HCL 0.4 MG CAP PO SCH (09:00)
--- NOTE | 2020-04-30 09:29 | Consultation Report ---
DATE OF CONSULTATION: 04/30/2020 MEDICAL ONCOLOGY CONSULTATION REASON FOR CONSULTATION: Metastatic nonsmall cell lung cancer. HISTORY OF PRESENT ILLNESS: The patient is a very pleasant, somewhat unfortunate 74-year-old gentleman well known to [facility], currently under my care for metastatic nonsmall cell lung cancer. Fortunately, as many due the patient developed intracerebral metastatic disease back in late February receiving dexamethasone and whole brain radiation. He had also started durvalumab as salvage in mid February as well. Apparently, the patient began to feel ill the day before admission, he had been on weaning his steroids over the past several weeks. Beginning the day before admission, he developed significant fatigue, generalized weakness along with fever and chills. He also reported profuse diarrhea. His appetite has not been optimal. Left lower lobe opacity on chest x-ray compared to prior. He was negative for COVID-19. He was placed on broad spectrum antibiotics and is currently on BiPAP. The Palliative Service has also visited with the patient. I asked him today what his plans were and he would like to get better and continue his fight, but certainly is realistic and may opt for supportive care moving forward. PAST MEDICAL HISTORY: Significant for metastatic nonsmall cell lung cancer, history of myocardial infarction, gastroesophageal reflux disease, emphysema, COPD, chronic cough, coronary artery disease, cachexia. MEDICATIONS: Prior to admission include multivitamin 1 p.o. daily, albuterol inhaler 1 puff inhaled q.i.d. p.r.n., Celecoxib 200 mg p.o. b.i.d., clopidogrel 75 mg p.o. every day. He was on supplemental oxygen, famotidine 40 mg p.o. b.i.d., tamsulosin 0.4 mg p.o. daily, aspirin 81 mg p.o. daily, atorvastatin 40 mg p.o. daily, dexamethasone 4 mg p.o. b.i.d., isosorbide mononitrate 15 mg p.o. daily, metoclopramide 5 mg p.o. b.i.d., Anoro Ellipta inhaler 1 inhalation q.a.m. ALLERGIES: No known drug allergies. FAMILY HISTORY: Mother of COPD, emphysema and heart disease at age 87. Father of alcoholism at age 71. Sister at age 19 from multiple complications from defect. Another sister in her 50s from homicide. SOCIAL HISTORY: The patient is a reformed smoker and continues to smoke cigars. He lives with his . 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 Negative for alcohol or illicit substances. REVIEW OF SYSTEMS: CONSTITUTIONAL: Positive for general clinical decline, anorexia, fevers, chills and generalized weakness. SKIN: No rashes or lesions. No history of dermatoses. HEENT: No present headaches, lightheadedness or dizziness. No visual or hearing deficits. No sinus symptoms, sore throat or dysphagia. LYMPH: No history of lymphoproliferative disease. CARDIAC: Positive history of coronary artery disease. No current angina or palpitations. PULMONARY: Positive for emphysema/COPD. Positive for shortness of breath and dyspnea on exertion. He reports no cough or hemoptysis. GASTROINTESTINAL: Negative for abdominal pain. He does have occasional nausea, occasional diarrhea. No hematochezia, melena or nita rectal bleeding. GENITOURINARY: No hematuria, dysuria, urinary incontinence. MUSCULOSKELETAL: No arthralgias or myalgias. No focal muscle weakness. ENDOCRINE: Negative for thyroid disease or diabetes mellitus. NEUROLOGIC: Negative for seizure, stroke, or migraine headache. HEMATOLOGIC: Positive for normocytic normochromic anemia and thrombocytopenia. PHYSICAL EXAMINATION: GENERAL: Pleasant, awake, alert, appropriate 75-year-old gentleman in no acute distress. VITAL SIGNS: Temperature 36.4, pulse 110, respiratory rate 18, blood pressure 94/60. SKIN: Warm, dry, noncyanotic without petechia, rash or ecchymosis. HEENT: Oral mucosa without erythema or ulceration. NECK: Supple without JVD or thyromegaly. LYMPHATICS: No cervical or supraclavicular palpable nodes. HEART: Tachy, but regular. LUNGS: Distant breath sounds. No coarse rales or rhonchi appreciated. ABDOMEN: Soft, nontender, nondistended. EXTREMITIES: No clubbing, cyanosis or edema. NEUROLOGICALLY: He is awake, alert and oriented x3. Cranial nerves are grossly intact. LABORATORY DATA: WBC count 5180, hemoglobin 14.3, platelet count 77,000. Sodium 137, potassium 3.9, chloride 101, BUN 27, creatinine 0.99. LDH 610, ALT 111. BNP 2924, albumin 2.5. RADIOGRAPHIC DATA: Chest x-ray: Patchy airspace consolidation, most confluent in the left lung base, thought to be mill representative of pneumonia, possibly aspiration pneumonitis. CTA of the chest is pending. Brain MRI from 03/18/2020 2 cm left parietal mass with surrounding vasogenic edema. IMPRESSION: 1. Left lower lobe pneumonia. 2. Metastatic nonsmall cell lung cancer (brain mets). 3. Generalized weakness. 4. Anorexia. 5. Hypoxia. 6. Hypoalbuminemia. 7. Cytopenias attributable to chemotherapeutic effect. PLAN: In summary, patient is a pleasant 74-year-old gentleman I have known since 09/2019 when he was diagnosed with a locally advanced non-small cell lung cancer, stage IIIB to be precise. The patient received chemoradiation followed by consolidation and then recently was placed on durvalumab as salvage. Unfortunately, developed brain mets in February necessitating dexamethasone and radiation therapy. He has been in slow clinical decline ever since. I spoke to patient at bedside and he is cautiously optimistic he may recover from the pneumonia. I appreciate the palliative consultation. I think it is appropriate for sure. The patient, I think is very realistic with his circumstance. I could see him go either way if he improves. I believe he will return for further therapy. If he declines, I believe Brent and would be amenable to outpatient hospice care. I agree with current medical management and have no recommendations in that regard. The patient is scheduled for followup in the office once he is discharged. Thank you very much for allowing me to participate in the care of this very pleasant gentleman. I will be more than happy to answer any questions or concerns. JAZZD
[2020-04-30] MEDS ORDERED: VANCOMYCIN TROUGH ONE (09:30)
--- NOTE | 2020-04-30 10:42 | Pulmonology Progress Note ---
Date of Service April 30, 2020 Assessment & Plan (1) Acute hypoxemic respiratory failure: (2) COPD (chronic obstructive pulmonary disease): Emphysema type: centrilobular (3) Pneumonia: Impression: 75-year-old male with stage IV non-small cell lung cancer with brain metastases admitted with progressive hypoxemic respiratory failure and diffuse pulmonary infiltrates. The differential is broad and would include infectious etiologies as well as Durvulamab pulmonary toxicity is also a possibility. Atypical pulmonary edema (BNP elevated) and pulmonary hemorrhage would also be on the differential. The patient is too unstable to consider bronchoscopy at this point time as this would likely require intubation mechanical ventilation. The patient again reiterates that his CODE STATUS is DNR/DNI. Recommendations: 1. At this point time I would favor treating potentially reversible causes. We will continue Solu-Medrol 125 mg IV every 8 for possible pulmonary durvalumab toxicity. Given elevated BNP could consider diuresis, but with BP being soft, this may be problematic. 2. Await Legionella urinary antigen and Fungitel. LDH elevated and placed on bactrim empirically. Again the patient is not producing any sputum to allow for assessment of pneumocystis in the sputum and is too unstable to consider bronchoscopy. 3. Continue cefepime and vancomycin. 4. Would trend procalcitonin based on clinical response. 5. Continue heated high flow oxygen therapy/Vapotherm and target oxygen saturations at or above 88%. Patient again reiterates his desire to be DO NOT RESUSCITATE DO NOT INTUBATE which I think is reasonable. 6. Could consider CT imaging of the chest to better characterize the pulmonary parenchyma however the patient appears too unstable at this point time to consider transporting to the CT scanner and I am not sure it would filter changer acutely. 7. COPD: The patient has advanced obstructive lung disease. Continue nebulized Perforomist and budesonide as I think the patient's respiratory status would not allow for metered-dose inhalers 25 min reviewing case and coordinating care Laterality: bilateral Lung location: unspecified part of lung Pneumonia type: due to unspecified organism Qualified Code(s): J18.9 - Pneumonia, unspecified organism Admission and Anticipated Discharge Date Admission Date: April 29, 2020 Subjective Patient is somnolent but does arouse to verbal and tactile stimulus this morning. He states he feels his breathing is better. He is not coughing or expectorating phlegm. No significant chest pain. He is maintained on high flow oxygen Review of Systems Review of Systems: Unobtainable due to reduced consciousness Physical Exam Constitutional: + cachectic and + lethargic; no acute distress and not ill hortencia earing Neck: trachea midline, no thyromegaly Respiratory: normal respiratory effort Auscultation: no wheezes Cardiovascular: Rate/Rhythm: + tachycardic Heart Sounds: normal S1 and normal S2; no murmur Extremities: no edema Gastrointestinal (Abdomen): normal bowel sounds, soft, nontender, no hepatosplenomegaly Musculoskeletal: Extremities: extremities normal to inspection Skin: no rashes, warm and dry Lymphatic: no cervical lymphadenopathy Results & Data Results & Data ([facility]) Vital Signs (Past 12 Hours) Vital Signs Temp Pulse Pulse Resp BP BP Pulse Ox 04/30/20 08:12 37.2 C 117 H 20 102/67 96 04/30/20 07:19 110 H 24 94 04/30/20 03:24 36.4 C L 110 H 18 94/60 L 94 04/30/20 02:48 113 H 20 92 04/30/20 00:41 116 H 20 97 04/29/20 23:59 108 H 04/29/20 23:48 36.7 C 104 H 20 122/62 94 Laboratory Results 04/30/20 06:45 04/30/20 06:45 Diagnostic Findings No new imaging PG Care Time/CCT Total # of Minutes Spent Total Time Spent with Patient: Total time spent is greater than 50% in coordination of care (as documented) at patient's floor/unit and/or counseling patient: Coding Level of Care Code 52339 Subseq Hosp Care Lvl 3 Diagnoses Acute hypoxemic respiratory failure J96.01 COPD (chronic obstructive pulmonary disease) J44.9 Emphysema type: centrilobular Pneumonia J18.9 Laterality: bilateral Lung location: unspecified part of lung Pneumonia type: due to unspecified organism
[2020-04-30] MEDS: VANCOMYCIN HCL 750 MG in SODIUM CHLORIDE 0.9% 250 ML IV SCH (10:51)
--- NOTE | 2020-04-30 11:59 | Pharmacy Report ---
Pharmacy Abx Dose Short Note - Date of Service April 30, 2020 - Assessment & Plan Assessment * 75 year old M on cefepime, vancomycin, and Bactrim for treatment of sepsis, community acquired pneumonia with risk factors for resistant organisms * PMH: NSCLC with brain mets, on checkpoint inhibitor therapy as well as steroids * BMI 19.9 and reported h/o cachexia * Procal and lactate elevated with notable trend up in procal today * MRSA nasal swab negative, but possibly falsely so 2nd NSCLC - OK to continue vancomycin * SCr baseline appears to be 0.7-0.9 mg/dL, but notable trend down from yesterday to today (0.99 to 0.46 mg/dL) Vancomycin * Significant decrease in SCr noted therefore obtained an early trough - was significantly subtherapeutic at 3.5 mcg/mL. Although this was obtained prior to steady state, it does suggest significant clearance of vancomycin, and poss ibly a hypermetabolic state further supported by notable trend down in SCr to below baseline * Will provide supplemental vancomycin this AM for a near re-loading dose of 19 mg/kg * Population PK estimates seem to be inaccurate for this patient, therefore will assess patient-specific PK with a peak level and a random level later today Plan * Vancomycin 500 mg IV x1 (in addition to 750 mg already received this AM) * Random levels at 1500, 2000 * Ongoing vancomycin dosing will be dependent on levels Pharmacy will continue to follow and will adjust dose/frequency as necessary. Thank you.
[2020-04-30] MEDS ORDERED: VANCOMYCIN HCL 500 MG in 0.9 % SODIUM CHLORIDE 100 ML IV ONE (12:00)
--- NOTE | 2020-04-30 13:53 | XCELERA ---
[id number]
--- NOTE | 2020-04-30 15:04 | Palliative Care Progress Note ---
Date of Service April 30, 2020 Assessment & Plan (1) Dyspnea: Improved from yesterday but remains on high flow oxygen. He denies any discomfort with this. He did have one dose of morphine last night for dyspnea. (2) Palliative care encounter: Showing some signs of improvement today. He tells me that he wonders if he will make it out of the hospital. He had expressed that he would consider treatment for his cancer if he were to survive his pneumonia. I spoke with his on the phone and updated her on his condition. He remains very fragile with high O2 needs and would not be appropriate for home hospice at this time. She tells me that he has talked about going for additional cancer treatment before but when it comes time to go, he cancels the appointment. She reports that he has cancelled his last two treatment appointments. At this point, we will approach his care on a day to day basis with emphasis on comfort as we treat his respiratory failure. Palliative care will follow. Discussed with Dr. Vivas. (3) Acute hypoxemic respiratory failure: (4) Pneumonia: (5) Lung cancer metastatic to brain: (6) Elevated transaminase level: Admission and Anticipated Discharge Date Admission Date: April 29, 2020 Subjective Sleeping, but easily arousable. He denies pain and feels less short of breath today. He does not recall some events from yesterday. He's also asking for something to eat. Review of Systems Review of Systems: [place] Symptom Assessment Scale Pain 0/3 Dyspnea 1/3 Nausea 0/3 Anorexia 2/3 Anxiety 0/3 Fatigue 2/3 Drowsiness 1/3 Palliative Performance Score 20% Physical Exam Constitutional: + ill appearing and + thin; no acute distress ENMT: Mouth: + dry oral mucous membranes Respiratory: no labored breathing high flow oxygen Cardiovascular: Rate/Rhythm: regular rhythm and + tachycardic Gastrointestinal (Abdomen): Percussion/Palpation: abdomen nontender Musculoskeletal: Extremities: + muscle atrophy Skin: warm and dry Neurologic: no focal motor deficits generalized weakness Results & Data ([facility]) Vital Signs (Past 12 Hours) Vital Signs Temp Pulse Pulse Resp BP BP Pulse Ox 04/30/20 14:50 102 H 22 90 04/30/20 13:09 103 H 12 94 04/30/20 11:44 97.9 F 104 H 21 117/70 93 04/30/20 10:40 108 H 20 93 04/30/20 08:12 99.0 F 117 H 20 102/67 96 04/30/20 08:00 97 H 04/30/20 07:19 110 H 24 94 04/30/20 03:24 97.5 F L 110 H 18 94/60 L 94 PG Care Time/CCT Total # of Minutes Spent Total Time Spent with Patient: Total time spent is greater than 50% in coordination of care (as documented) at patient's floor/unit and/or counseling patient: Total time spent 45 minutes with more than 50% of time spent on symptom management, family support, coordination of care and goals of care. Coding Level of Care Code 65039 Subseq Hosp Care Lvl 3 Diagnoses Dyspnea R06.00 Palliative care encounter Z51.5 Acute hypoxemic respiratory failure J96.01 Pneumonia J18.9 Laterality: bilateral Lung location: unspecified part of lung Pneumonia type: due to unspecified organism Lung cancer metastatic to brain C34.90; C79.31 Elevated transaminase level R74.01 (1) Pneumonia Laterality: bilateral Lung location: unspecified part of lung Pneumonia type: due to unspecified organism Qualified Code(s): J18.9 - Pneumonia, unspecified organism
[2020-04-30] MEDS: CEFTAROLINE FOSAMIL ACETATE 600 MG in SODIUM CHLORIDE 0.9% 250 ML IV SCH (18:40)
[2020-04-30] MEDS: ASPIRIN 81 MG ECTAB PO SCH (20:08)
[2020-04-30] MEDS: ATORVASTATIN 40 MG TAB PO SCH (20:08)
[2020-05-01] MEDS: ALBUT/IPRATROP 3MG/0.5MG NEB 3 ML VIAL INH SCH ×3 (00:07→13:23)
[2020-05-01] MEDS: methylPREDNISolone 125 MG in SYRINGE 0 ML IV SCH ×3 (02:46→17:26)
[2020-05-01] MEDS: HEPARIN SOD 5,000 UNIT/0.5 ML VIAL SQ SCH ×3 (05:48→21:25)
[2020-05-01] MEDS: CEFTAROLINE FOSAMIL ACETATE 600 MG in SODIUM CHLORIDE 0.9% 250 ML IV SCH ×2 (05:48→17:31)
[2020-05-01] MEDS: BUDESONIDE 0.5 MG/2 ML VIAL (PULMICORT) NEB SCH ×2 (07:13→19:08)
[2020-05-01] MEDS: FORMOTEROL 20 MCG/2 ML VIAL NEB SCH ×2 (07:13→19:08)
--- NOTE | 2020-05-01 07:17 | Hospitalist Progress Note ---
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 The differential is broad and would include infectious etiologies especially given his elevated procalcitonin however he is not febrile and his white blood cell count is normal although he is on immunotherapy and steroids. Durvulamab pulmonary toxicity is also a possibility. Atypical pulmonary edema and pulmonary hemorrhage would also be on the differential. The patient is too unstable to consider bronchoscopy at this point time as this would likely require intubation mechanical ventilation. The patient again reiterates that his CODE STATUS is DNR/DNI. Acute Hypoxic Respiratory Failure Suspect 2/2 LLL PNA. requiring vapotherm high flow ooxygen - increase LLL opacity on CXR compared to prior - COVID with repeat cepheid panel negative x2 for COVID, negative for flu vancomycin/ cefepime - Blood cultures negative to date , Sputum cultures not collected - Continue NSS 120cc/hr - Hypoxia disproportionate to XR finding with tachypnea and coagulopathy risk 2/2 underlying malignancy; CTA (2) Sepsis: As above (3) Hypoxia: multifactoral, has severe copd, now new pneumonia, and possible pulmonary toxicity Continue high flow nasal cannula oxygen mask to keep pulse ox greater than 88- 90% Scheduled duo nebs He does not desire intubation (4) Elevated troponin: not VT consider Demand ischemia (5) Non-small cell lung cancer (NSCLC): pt has history of metastatic lesions to brain CTA suggests continued pulmonary lesions Palliative care has been in discussion with family, it is unlikely he will have rapid improvement to deescalate from vapo therm for some time it able to at all (6) Hypomagnesemia: replete (7) COPD (chronic obstructive pulmonary disease): (8) Thrombocytopenia: continues (9) DVT prophylaxis: heparin sc tid Admission and Anticipated Discharge Date Admission Date: April 29, 2020 Subjective Is an awake and conversant. He is requiring Vapotherm oxygen at a fairly high supplemental rate 40 L 90% and bipap to sustain his oxygen saturations. His multiple pulmonary issues including metastatic lung cancer and a concurrent pneumonia on top of COPD that typically is with chronic oxygen supplementation. Discussions have been had regarding palliative care. The patient says he just wants to go home and , he will not survive long or maybe even the trip on the amount of oxygen he is using, he was able to see his pet dogs today in the hospital Review of Systems Review of Systems: moderate distress and fatigue no headache, blurry or double vision no speech or swallowing issues no chest pain, pressure or palpitations significant shortness of breath, non productive cough or wheezes no abdominal pain, nausea or vomiting, diarrhea or constipation no dysuria, hematuria or frequency no focal joint pain or swelling no back pain, CVA tenderness or radicular pain no bruising, bleeding or rashes no focal signs of weakness or numbness or altered sensation no complaints of anxiety or depression.. Physical Exam Physical Exam: The patient appeared chronically ill short of breath, and fatigued Vital signs as documented. Head exam is normocephalic atraumatic no scleral icterus Neck is without JVD, thyromegaly, or carotid bruits. Lungs are very diminished with poor air movement Cardiac exam, Rhythm is regular.. BEATRICE Abdominal exam reveals normal bowel sounds, soft non tender, no masses Extremities are nonedematous and both pedal pulses are present Neurologic exam is alert and oriented, very weak over all Skin is without bruises or rashes Psychologically is without concerns for anxiety or depression Results & Data Results & Data ([facility]) Vital Signs (Past 12 Hours) Vital Signs Temp Pulse Pulse Resp BP Pulse Ox Pulse Ox 05/01/20 03:39 98.1 F 88 20 100/68 93 05/01/20 00:08 98 H 97 H 37 H 95 04/30/20 23:59 94 H 04/30/20 23:29 98.1 F 20 105/72 92 04/30/20 23:03 94 04/30/20 21:54 105 H 28 H 94 04/30/20 19:50 92 H 18 92 04/30/20 19:17 98.1 F 101 H 20 107/72 90 PG Care Time/CCT Total # of Minutes Spent Total Time Spent with Patient: Total time spent is greater than 50% in coordination of care (as documented) at patient's floor/unit and/or counseling patient: Coding Level of Care Code 24848 Subseq Hosp Care Lvl 3 Diagnoses Pneumonia J18.9 Laterality: bilateral Lung location: unspecified part of lung Pneumonia type: due to unspecified organism Sepsis A41.9 Hypoxia R09.02 Elevated troponin R77.8 Non-small cell lung cancer (NSCLC) C34.91 Laterality: right Hypomagnesemia E83.42 COPD (chronic obstructive pulmonary disease) J44.9 Emphysema type: centrilobular Thrombocytopenia D69.6 DVT prophylaxis Z29.9 (1) Non-small cell lung cancer (NSCLC) Laterality: right Qualified Code(s): C34.91 - Malignant neoplasm of unspecified part of right bronchus or lung (2) COPD (chronic obstructive pulmonary disease) Emphysema type: centrilobular (3) Pneumonia Laterality: bilateral Lung location: unspecified part of lung Pneumonia type: due to unspecified organism Qualified Code(s): J18.9 - Pneumonia, unspecified organism
[2020-05-01] MEDS: UMECLIDINIUM/VILANTEROL 62.5/25MCG 7 PUFFS/INHALER INH SCH (09:45)
[2020-05-01] MEDS: CLOPIDOGREL BISULFATE 75 MG TAB PO SCH (09:46)
[2020-05-01] MEDS: SULFAMETHOXAZOLE/TRIMETHOPRIM DS 800/160MG TAB PO SCH ×2 (09:46→20:42)
[2020-05-01] MEDS: FAMOTIDINE 40 MG TABLET PO SCH ×2 (09:46→20:41)
[2020-05-01] MEDS ORDERED: ACETAMINOPHEN 325 MG TAB PO PRN (10:36)
[2020-05-01] MEDS: ACETAMINOPHEN 325 MG TAB PO PRN (11:12)
--- NOTE | 2020-05-01 11:53 | Palliative Care Progress Note ---
Date of Service May 01, 2020 Assessment & Plan (1) Dyspnea: Related to respiratory failure with lung cancer and pneumonia vs pneumonitis. He denies feeling short of breath currently. He does have morphine available for dyspnea as needed. (2) Pain: Generalized with osteoarthritis. On steroids. Add tylenol at lower dose, less frequent with transaminitis (3) Acute hypoxemic respiratory failure: Remains on high flow O2, high dose steroids and antibiotic therapy. (4) Palliative care encounter: I talked with Silviano at bedside today about concern that we will not be able to successfully wean his oxygen to the point where he could go home with hospice care. His wish is to be at home to . We discussed that further and his biggest reason is being able to see his dogs. I spoke with nursing supervisor contact and service clerks about the possibly having his dogs visit. Per his , they are up to date on immunizations and have documentation of this. They have been to [facility] as therapy dogs as well. I spoke with his who will bring documentation and dogs for visit per pet policy. RN and vest front presser aware. (5) Elevated transaminase level: (6) Lung cancer metastatic to brain: Admission and Anticipated Discharge Date Admission Date: April 29, 2020 Subjective Remains on high flow oxygen. Not sleeping well at night. Reports having good appetite. He does c/o some arthritis pain and discomfort in bed. Review of Systems Review of Systems: [place] Symptom Assessment Scale Pain 1/3 Dyspnea 1/3 Nausea 0/3 Constipation 0/3 LBM 3/10 Drowsiness 1/3 Fatigue 2/3 Anxiety 0/3 Palliative Performance Score 30% Physical Exam Constitutional: + ill appearing ENMT: Mouth: + dry oral mucous membranes Respiratory: + uses accessory muscles Cardiovascular: Rate/Rhythm: regular rate and regular rhythm Gastrointestinal (Abdomen): Inspection/Auscultation: abdomen not distended Musculoskeletal: Extremities: extremities normal to inspection Neurologic: no focal motor deficits and not confused Results & Data ([facility]) Vital Signs (Past 12 Hours) Vital Signs Temp Pulse Pulse Resp BP Pulse Ox 05/01/20 11:23 92 05/01/20 11:14 97.9 F 86 22 114/74 88 L 05/01/20 07:45 98.1 F 86 22 102/65 91 05/01/20 07:30 98 H 18 89 L 05/01/20 07:19 89 05/01/20 07:14 97 H 18 91 05/01/20 03:39 98.1 F 88 20 100/68 93 05/01/20 00:08 98 H 97 H 37 H 95 04/30/20 23:59 94 H PG Care Time/CCT Total # of Minutes Spent Total Time Spent with Patient: Total time spent is greater than 50% in coordination of care (as documented) at patient's floor/unit and/or counseling patient: Coding Level of Care Code 86198 Subseq Hosp Care Lvl 3 Diagnoses Dyspnea R06.00 Pain R52 Acute hypoxemic respiratory failure J96.01 Palliative care encounter Z51.5 Elevated transaminase level R74.01 Lung cancer metastatic to brain C34.90; C79.31
--- NOTE | 2020-05-01 14:13 | Pulmonology Progress Note ---
Date of Service May 01, 2020 Assessment & Plan (1) Acute hypoxemic respiratory failure: (2) COPD (chronic obstructive pulmonary disease): Emphysema type: centrilobular (3) Pneumonia: Impression: 75-year-old male with stage IV non-small cell lung cancer with brain metastases admitted with progressive hypoxemic respiratory failure and diffuse pulmonary infiltrates. The differential is broad and would include infectious etiologies as well as inflammatory etiologies such as Durvulamab pulmonary toxicity. Atypical pulmonary edema (BNP elevated) and pulmonary hemorrhage would also be on the differential. The patient is too unstable to consider bronchoscopy at this point time as this would likely require intubation mechanical ventilation. The patient again reiterates that his CODE STATUS is DNR/DNI. Recommendations: 1. We will continue to treat for any potentially reversible causes. We will continue Solu-Medrol 125 mg IV every 8 for possible pulmonary durvalumab toxicity. Diuresis as tolerated by primary service. 2. Await Legionella urinary antigen and Fungitel. LDH elevated and placed on bactrim empirically. Again the patient is not producing any sputum to allow for assessment of pneumocystis in the sputum and is too unstable to consider bronchoscopy. 3. Transition to ceftaroline as vancomycin levels were difficult to maintain therapeutic. 4. Would trend procalcitonin based on clinical response. 5. Continue heated high flow oxygen therapy/Vapotherm and target oxygen saturations at or above 88%. Patient again reiterates his desire to be DO NOT RESUSCITATE DO NOT INTUBATE which I think is reasonable. 6. Patient's overall desires to try and return home. I advised him that based on his current oxygen requirement, I am not sure that this is logistically feasible. He wants to see how he does over the next 48 hours and then make a decision this weekend. His is in attendance and she agrees with the plan. 7. COPD: The patient has advanced obstructive lung disease. Continue nebulized Perforomist and budesonide as I think the patient's respiratory status would not allow for metered-dose inhalers 25 min reviewing case and coordinating care Laterality: bilateral Lung location: unspecified part of lung Pneumonia type: due to unspecified organism Qualified Code(s): J18.9 - Pneumonia, unspecified organism Admission and Anticipated Discharge Date Admission Date: April 29, 2020 Subjective Patient seen and examined. He remains on high flow on high settings. He does not feel much different than when he was admitted. His work of breathing is definitely decreased. He is coughing and expectorating small amounts of phlegm. He denies any chest pain or palpitations. He has been able to eat. He again expresses his desire to try and get home if possible. Review of Systems Review of Systems: All systems reviewed & are unremarkable except as noted in HPI & below Physical Exam Constitutional: + cachectic and + lethargic; no acute distress and not ill appearing Neck: trachea midline, no thyromegaly Respiratory: normal respiratory effort Auscultation: no wheezes Cardiovascular: Rate/Rhythm: + tachycardic Heart Sounds: normal S1 and normal S2; no murmur Extremities: no edema Gastrointestinal (Abdomen): normal bowel sounds, soft, nontender, no hepatosplenomegaly Musculoskeletal: Extremities: extremities normal to inspection Skin: no rashes, warm and dry Lymphatic: no cervical lymphadenopathy Results & Data Results & Data ([facility]) Vital Signs (Past 12 Hours) Vital Signs Temp Pulse Pulse Resp BP Pulse Ox 05/01/20 13:43 95 05/01/20 13:23 107 H 24 97 05/01/20 12:23 92 05/01/20 11:58 92 H 20 92 05/01/20 11:23 92 05/01/20 11:14 36.6 C 86 22 114/74 88 L 05/01/20 07:45 36.7 C 86 22 102/65 91 05/01/20 07:30 98 H 18 89 L 05/01/20 07:19 89 05/01/20 07:14 97 H 18 91 05/01/20 03:39 36.7 C 88 20 100/68 93 Laboratory Results 04/30/20 06:45 04/30/20 06:[address] angiogram 04/29/2020 was reviewed. No large vessel filling defects concerning for PEs were identified. There is diffuse groundglass opacities in the setting of severe centrilobular emphysema. Small pleural effusions were noted. Differ ential would include inflammatory and infectious etiologies. PG Care Time/CCT Total # of Minutes Spent Total Time Spent with Patient: Total time spent is greater than 50% in coordination of care (as documented) at patient's floor/unit and/or counseling patient: Coding Level of Care Code 50887 Subseq Hosp Care Lvl 3 Diagnoses Acute hypoxemic respiratory failure J96.01 COPD (chronic obstructive pulmonary disease) J44.9 Emphysema type: centrilobular Pneumonia J18.9 Laterality: bilateral Lung location: unspecified part of lung Pneumonia type: due to unspecified organism Time Spent (min) 28
[2020-05-01] MEDS: MoRPHine SULFATE 2 MG/ML CARP IV PRN ×2 (15:26→23:39)
[2020-05-01] MEDS: LEVALBUTEROL HCL 1.25 MG/3 ML NEB NEB SCH (19:08)
[2020-05-01] MEDS: ASPIRIN 81 MG ECTAB PO SCH (20:41)
[2020-05-01] MEDS: ATORVASTATIN 40 MG TAB PO SCH (20:42)
[2020-05-02] MEDS: LEVALBUTEROL HCL 1.25 MG/3 ML NEB NEB SCH ×3 (00:53→12:22)
[2020-05-02] MEDS: methylPREDNISolone 125 MG in SYRINGE 0 ML IV SCH ×3 (03:10→16:46)
[2020-05-02] MEDS: CEFTAROLINE FOSAMIL ACETATE 600 MG in SODIUM CHLORIDE 0.9% 250 ML IV SCH ×2 (05:16→16:53)
[2020-05-02] MEDS: HEPARIN SOD 5,000 UNIT/0.5 ML VIAL SQ SCH ×3 (05:17→20:36)
[2020-05-02] MEDS: FORMOTEROL 20 MCG/2 ML VIAL NEB SCH ×2 (07:03→19:02)
[2020-05-02] MEDS: BUDESONIDE 0.5 MG/2 ML VIAL (PULMICORT) NEB SCH ×2 (07:03→19:02)
[2020-05-02] MEDS: SULFAMETHOXAZOLE/TRIMETHOPRIM DS 800/160MG TAB PO SCH ×2 (08:15→20:36)
[2020-05-02] MEDS: CLOPIDOGREL BISULFATE 75 MG TAB PO SCH (08:15)
[2020-05-02] MEDS: FAMOTIDINE 40 MG TABLET PO SCH ×2 (08:15→20:36)
[2020-05-02] MEDS: UMECLIDINIUM/VILANTEROL 62.5/25MCG 7 PUFFS/INHALER INH SCH (08:15)
--- NOTE | 2020-05-02 12:19 | Palliative Care Progress Note ---
Date of Service May 02, 2020 Assessment & Plan (1) Dyspnea: On high flow O2. He has morphine available for pain and dyspnea but has not used it since initial dose at admission. (2) Palliative care encounter: When I sat down to talk with me, he asked me what it would be like if we turned off the oxygen and when would we do that. He is very much aware that he is dependent on the high flow oxygen and will not be able to go home. He did have the opportunity to see his dogs yesterday and enjoyed that. He has decided in his mind that he wants to withdraw oxygen support tomorrow. We talked extensively about this. I assured him that the timing was entirely his choice. That we would not just turn the oxygen off but would decrease the flow for his comfort and that we would have medication to relieve anxiety and air hunger that he may have. He wants to visit with his tomorrow and has some things that he wants to tell her. He tells me that after that he is ready to and has known that this time was coming. He denies fears or worries. I spoke with his and discussed the plan with her. She supports his decision and is comfortable with the plan. Orders are in for morphine, ativan and glycopyrrolate for his comfort. Admission and Anticipated Discharge Date Admission Date: April 29, 2020 Subjective Pleasant. Denies any discomfort. Good appetite. Review of Systems Review of Systems: [place] Symptom Assessment Scale Pain 0/3 Dyspnea 1/3 Fatigue 2/3 Nausea0/3 Anorexia 0/3 Drowsiness 0/3 Palliative Performance Score 30% Physical Exam Constitutional: + ill appearing; no acute distress ENMT: Mouth: + dry oral mucous membranes Respiratory: + uses accessory muscles Gastrointestinal (Abdomen): Percussion/Palpation: abdomen nontender Skin: warm and dry Neurologic: awake; no focal motor deficits and not confused Psychiatric: Orientation: alert and oriented x 3 Insight: good insight Judgement: good judgement Results & Data ([facility]) Vital Signs (Past 12 Hours) Vital Signs Temp Pulse Pulse Resp BP Pulse Ox 05/02/20 11:10 97.9 F 88 20 104/62 89 L 05/02/20 10:56 82 20 91 05/02/20 07:43 97.7 F 92 H 21 100/60 89 L 05/02/20 07:18 93 H 22 90 05/02/20 07:04 78 26 H 93 05/02/20 03:45 97.7 F 85 24 118/69 91 05/02/20 03:11 93 H 26 H 93 05/02/20 00:55 90 90 16 97 PG Care Time/CCT Total # of Minutes Spent Total Time Spent with Patient: Total time spent is greater than 50% in coordination of care (as documented) at patient's floor/unit and/or counseling patient: Total time spent 40 minutes with more than 50% of time spent on symptom ma nagement, plan of care, patient and family support. Coding Level of Care Code 15615 Subseq Hosp Care Lvl 3 Diagnoses Dyspnea R06.00 Palliative care encounter Z51.5
[2020-05-02] MEDS ORDERED: GLYCOPYRROLATE 0.2 MG/ML VIAL IV PRN (12:20)
[2020-05-02] MEDS ORDERED: MoRPHine SULFATE 2 MG/ML CARP IV PRN (12:20)
--- NOTE | 2020-05-02 15:22 | Pulmonology Progress Note ---
Date of Service May 02, 2020 Assessment & Plan (1) Acute hypoxemic respiratory failure: (2) COPD (chronic obstructive pulmonary disease): Emphysema type: centrilobular (3) Pneumonia: Impression: 75-year-old male with stage IV non-small cell lung cancer with brain metastases admitted with progressive hypoxemic respiratory failure and diffuse pulmonary infiltrates. The differential is broad and would include infectious etiologies as well as inflammatory etiologies such as Durvulamab pulmonary toxicity. Atypical pulmonary edema (BNP elevated) and pulmonary hemorrhage would also be on the differential. The patient is too unstable to consider bronchoscopy at this point time as this would likely require intubation mechanical ventilation. The patient again reiterates that his CODE STATUS is DNR/DNI. Recommendations: 1. We will continue to treat for any potentially reversible causes. We will continue Solu-Medrol 125 mg IV every 8 for possible pulmonary durvalumab toxicity. Diuresis as tolerated by primary service. If the patient elects to transition to complete comfort care measures, these interventions can always be discontinued 2. Legionella urinary antigen is negative and Fungitell currently pending. LDH elevated and placed on bactrim empirically. Again the patient is not producing any sputum to allow for assessment of pneumocystis in the sputum and is too unstable to consider bronchoscopy. 3. Continue empiric ceftaroline currently 4. Would trend procalcitonin based on clinical response. 5. Continue heated high flow oxygen therapy/Vapotherm and target oxygen saturations at or above 88%. Patient again reiterates his desire to be DO NOT RESUSCITATE DO NOT INTUBATE which I think is reasonable. Patient may try transitioning to a nonrebreather mask at 10 L/min which may be able to get him out of the hospital and potentially get him home 6. Patient's overall desires to try and return home. I advised him that based on his current oxygen requirement, I am not sure that this is logistically feasible. We will see if he can tolerate the nonrebreather 7. COPD: The patient has advanced obstructive lung disease. Continue nebulized Perforomist and budesonide as I think the patient's respiratory status would not allow for metered-dose inhalers 25 min reviewing case and coordinating care Laterality: bilateral Lung location: unspecified part of lung Pneumonia type: due to unspecified organism Qualified Code(s): J18.9 - P neumonia, unspecified organism Admission and Anticipated Discharge Date Admission Date: April 29, 2020 Subjective Patient feels about the same to slightly worse. He thinks that with weaning his oxygen he feels a little more short of breath. He is coughing but not expectorating any phlegm. He is not noted any hemoptysis. No fevers chills overnight. He is getting frustrated with his current level of care and is contemplating transitioning to complete palliative care and discontinuing his oxygen therapy. He again reiterates that his goal is to try and get home Physical Exam Constitutional: + cachectic and + lethargic; no acute distress and not ill appearing Neck: trachea midline, no thyromegaly Respiratory: normal respiratory effort Auscultation: no wheezes Cardiovascular: Rate/Rhythm: + tachycardic Heart Sounds: normal S1 and normal S2; no murmur Extremities: no edema Gastrointestinal (Abdomen): normal bowel sounds, soft, nontender, no hepat osplenomegaly Musculoskeletal: Extremities: extremities normal to inspection Skin: no rashes, warm and dry Lymphatic: no cervical lymphadenopathy Results & Data Results & Data ([facility]) Vital Signs (Past 12 Hours) Vital Signs Temp Pulse Pulse Resp BP Pulse Ox 05/02/20 12:22 94 H 21 95 05/02/20 11:10 36.6 C 88 20 104/62 89 L 05/02/20 10:56 82 20 91 05/02/20 07:43 36.5 C 92 H 21 100/60 89 L 05/02/20 07:18 93 H 22 90 05/02/20 07:04 78 26 H 93 05/02/20 03:45 36.5 C 85 24 118/69 91 Laboratory Results 04/30/20 06:45 04/30/20 06:45 Diagnostic Findings No new imaging PG Care Time/CCT Total # of Minutes Spent Total Time Spent with Patient: Total time spent is greater than 50% in coordination of care (as documented) at patient's floor/unit and/or counseling patient: Coding Level of Care Code 42043 Subseq Hosp Care Lvl 3 Diagnoses Acute hypoxemic respiratory failure J96.01 COPD (chronic obstructive pulmonary disease) J44.9 Emphysema type: centrilobular Pneumonia J18.9 Laterality: bilateral Lung location: unspecified part of lung Pneumonia type: due to unspecified organism Time Spent (min) 25
[2020-05-02] MEDS ORDERED: LEVALBUTEROL HCL 1.25 MG/3 ML NEB NEB PRN (17:28)
--- NOTE | 2020-05-02 19:13 | Hospitalist Progress Note ---
Date of Service May 02, 2020 Assessment & Plan (1) Pneumonia: 75-year-old male with stage IV non-small cell lung cancer with brain metastases admitted with progressive hypoxemic respiratory failure and diffuse pulmonary infiltrates. The differential is broad and would include infectious etiologies especially given his elevated procalcitonin however he is not febrile and his white blood cell count is normal although he is on immunotherapy and steroids. Durvulamab pulmonary toxicity is also a possibility. Atypical pulmonary edema and pulmonary hemorrhage would also be on the differential. The patient is too unstable to consider bronchoscopy at this point time as this would likely require intubation mechanical ventilation. The patient again reiterates that his CODE STATUS is DNR/DNI. Acute Hypoxic Respiratory Failure Suspect 2/2 LLL PNA. requiring vapotherm high flow oxygen-> difficult situation as cannot titrate oxygen to lower amounts, pt is now becomming despondent and may consider terminal titration in the hospital - increase LLL opacity on CXR compared to prior - COVID with repeat cepheid panel negative x2 for COVID, negative for flu vancomycin/ cefepime - Blood cultures negative to date , Sputum cultures not collected - Continue NSS 120cc/hr - Hypoxia disproportionate to XR finding with tachypnea and coagulopathy risk 2/2 underlying malignancy; CTA (2) Sepsis: As above (3) Hypoxia: multifactoral, has severe copd, now new pneumonia, and possible pulmonary toxicity Continue high flow nasal cannula oxygen mask to keep pulse ox greater than 88- 90% Scheduled duo nebs He does not desire intubation (4) Elevated troponin: not [place] consider Demand ischemia (5) Non-small cell lung cancer (NSCLC): pt has history of metastatic lesions to brain CTA suggests continued pulmonary lesions Palliative care has been in discussion with family, it is unlikely he will have rapid improvement to deescalate from vapo therm for some time if able to at all (6) Hypomagnesemia: replete (7) COPD (chronic obstructive pulmonary disease): (8) Thrombocytopenia: continues (9) DVT prophylaxis: heparin sc tid Admission and Anticipated Discharge Date Admission Date: April 29, 2020 Subjective Patient feels about the same to slightly worse. He is coughing but not expectorating any phlegm. He did expectorate a large clot at one point He is getting frustrated with his current level of care and is contemplating transitioning to complete palliative care and discontinuing his oxygen therapy. He again reiterates that his goal is to try and get home, but is also contemplating palliative care progressing to comfort measures in the hospital Review of Systems Review of Systems: moderate distress and fatigue no headache, blurry or double vision no speech or swallowing issues no chest pain, pressure or palpitations significant shortness of breath, non productive cough or wheezes no abdominal pain, nausea or vomiting, diarrhea or constipation no dysuria, hematuria or frequency no focal joint pain or swelling no back pain, CVA tenderness or radicular pain no bruising, bleeding or rashes no focal signs of weakness or numbness or altered sensation no complaints of anxiety or depression.. Physical Exam Physical Exam: The patient appeared chronically ill short of breath, and fatigued Vital signs as documented. Head exam is normocephalic atraumatic no scleral icterus Neck is without JVD, thyromegaly, or carotid bruits. Lungs are very diminished with poor air movement Cardiac exam, Rhythm is regular.. BEATRICE Abdominal exam reveals normal bowel sounds, soft non tender, no masses Extremities are nonedematous and both pedal pulses are present Neurologic exam is alert and oriented, very weak over all Skin is without bruises or rashes Psychologically is without concerns for anxiety or depression Results & Data Results & Data ([facility]) Vital Signs (Past 12 Hours) Vital Signs Temp Pulse Pulse Resp BP BP Pulse Ox 05/02/20 19:05 89 20 88 L 05/02/20 15:37 97.7 F 92 H 20 122/67 89 L 05/02/20 12:22 94 H 21 95 05/02/20 11:10 97.9 F 88 20 104/62 89 L 05/02/20 10:56 82 20 91 05/02/20 07:43 97.7 F 92 H 21 100/60 89 L 05/02/20 07:18 93 H 22 90 PG Care Time/CCT Total # of Minutes Spent Total Time Spent with Patient: Total time spent is greater than 50% in coordination of care (as documented) at patient's floor/unit and/or counseling patient: Coding Level of Care Code 07319 Subseq Hosp Care Lvl 3 Diagnoses Pneumonia J18.9 Laterality: bilateral Lung location: unspecified part of lung Pneumonia type: due to unspecified organism Sepsis A41.9 Hypoxia R09.02 Elevated troponin R77.8 Non-small cell lung cancer (NSCLC) C34.91 Laterality: right Hypomagnesemia E83.42 COPD (chronic obstructive pulmonary disease) J44.9 Emphysema type: centrilobular Thrombocytopenia D69.6 DVT prophylaxis Z29.9 (1) Non-small cell lung cancer (NSCLC) Laterality: right Qualified Code(s): C34.91 - Malignant neoplasm of unspecified part of right bronchus or lung (2) COPD (chronic obstructive pulmonary disease) Emphysema type: centrilobular (3) Pneumonia Laterality: bilateral Lung location: unspecified part of lung Pneumonia type: due to unspecified organism Qualified Code(s): J18.9 - Pneumonia, unspecified organism
[2020-05-02] MEDS: ATORVASTATIN 40 MG TAB PO SCH (20:36)
[2020-05-02] MEDS: ASPIRIN 81 MG ECTAB PO SCH (20:36)
[2020-05-02 22:32] LABS: Fungitell (1-3)-B-D-Glucan >500
[2020-05-03] MEDS: methylPREDNISolone 125 MG in SYRINGE 0 ML IV SCH ×2 (02:38→09:38)
[2020-05-03] MEDS: ACETAMINOPHEN 325 MG TAB PO PRN (03:30)
[2020-05-03] MEDS: CEFTAROLINE FOSAMIL ACETATE 600 MG in SODIUM CHLORIDE 0.9% 250 ML IV SCH (06:06)
[2020-05-03] MEDS: HEPARIN SOD 5,000 UNIT/0.5 ML VIAL SQ SCH ×2 (06:06→14:02)
[2020-05-03] MEDS: BUDESONIDE 0.5 MG/2 ML VIAL (PULMICORT) NEB SCH ×2 (06:57→18:59)
[2020-05-03] MEDS: FORMOTEROL 20 MCG/2 ML VIAL NEB SCH ×2 (06:57→18:59)
[2020-05-03] MEDS: UMECLIDINIUM/VILANTEROL 62.5/25MCG 7 PUFFS/INHALER INH SCH (09:37)
[2020-05-03] MEDS: FAMOTIDINE 40 MG TABLET PO SCH ×2 (09:39→21:33)
[2020-05-03] MEDS: CLOPIDOGREL BISULFATE 75 MG TAB PO SCH (09:39)
[2020-05-03] MEDS: SULFAMETHOXAZOLE/TRIMETHOPRIM DS 800/160MG TAB PO SCH (09:39)
--- NOTE | 2020-05-03 12:52 | Pulmonology Progress Note ---
Date of Service May 03, 2020 Assessment & Plan (1) Acute hypoxemic respiratory failure: (2) COPD (chronic obstructive pulmonary disease): Emphysema type: centrilobular (3) Pneumonia: Impression: 75-year-old male with stage IV non-small cell lung cancer with brain metastases admitted with progressive hypoxemic respiratory failure and diffuse pulmonary infiltrates. The differential is broad and would include infectious etiologies as well as inflammatory etiologies such as Durvulamab pulmonary toxicity. Atypical pulmonary edema (BNP elevated) and pulmonary hemorrhage would also be on the differential. The patient is too unstable to consider bronchoscopy at this point time as this would likely require intubation mechanical ventilation. The patient again reiterates that his CODE STATUS is DNR/DNI. At this point in time he is leaning towards consideration of palliative care which is certainly reasonable Recommendations: 1. We will continue to treat for any potentially reversible causes. We will continue Solu-Medrol 125 mg IV every 8 for possible pulmonary durvalumab toxicity. Diuresis as tolerated by primary service. If the patient elects to transition to complete comfort care measures, these interventions can always be discontinued. I did advise the patient that his current scenario appears more consistent with an infection and certainly there could be improvement in this although his underlying cancer would not be affected by treatment for infection. He is contemplating discontinuation of supportive efforts and given his uncertainty, I think we will hold off on other aggressive interventions at this point. 2. Legionella urinary antigen is negative but galactomannan is markedly positive at over 500. LDH elevated and placed on bactrim empirically. Again the patient is not producing any sputum to allow for assessment of pneumocystis in the sputum and is too unstable to consider bronchoscopy, however given the clinical context and radiographic findings as well as the patient having been on steroids in the past, I think a diagnosis of P CASSI is highly likely. We will continue Bactrim for now. It is possible that this could represent other forms of fungal infection including aspergillosis however the CT scan in clinical context do not appear consistent with that diagnosis so we will hold off on broadening his antifungal therapy for now. 3. Continue empiric ceftaroline currently 4. His procalcitonin is increasing which is certainly concerning. 5. Continue heated high flow oxygen therapy/Vapotherm and target oxygen saturations at or above 88%. Patient again reiterates his desire to be DO NOT RESUSCITATE DO NOT INTUBATE which I think is reasonable. Patient may try t ransitioning to a nonrebreather mask at 10 L/min which may be able to get him out of the hospital and potentially get him home 6. Patient's overall desires to try and return home. I advised him that based on his current oxygen requirement, I am not sure that this is logistically feasible. We will see if he can tolerate the nonrebreather 7. COPD: The patient has advanced obstructive lung disease. Continue nebulized Perforomist and budesonide as I think the patient's respiratory status would not allow for metered-dose inhalers 35 min reviewing case and coordinating care Laterality: bilateral Lung location: unspecified part of lung Pneumonia type: due to unspecified organism Qualified Code(s): J18.9 - Pneumonia, unspecified organism Admission and Anticipated Discharge Date Admission Date: April 29, 2020 Subjective Patient seen and examined. When I walked in the patient's oxygen saturations were in the 60% range despite the high flow cannula. He states he just got done eating. One of the prongs of the heated high flow cannula was no longer in his nose. I repositioned this and turned him up to an FiO2 of 100% with improvement in his oxygen saturations to the high 80 low 90% range. The patient states that he feels about the same. He is not really coughing or expectorating phlegm. He is getting frustrated by the lack of any significant clinical progress. Physical Exam Constitutional: + cachectic and + lethargic; no acute distress and not ill appearing Neck: trachea midline, no thyromegaly Respiratory: normal respiratory effort Auscultation: no wheezes Cardiovascular: Rate/Rhythm: + tachycardic Heart Sounds: normal S1 and normal S2; no murmur Extremities: no edema Gastrointestinal (Abdomen): normal bowel sounds, soft, nontender, no hepatosplenomegaly Musculoskeletal: Extremities: extremities normal to inspection Skin: no rashes, warm and dry Lymphatic: no cervical lymphadenopathy Results & Data Results & Data ([facility]) Vital Signs (Past 12 Hours) Vital Signs Temp Pulse Pulse Pulse Resp BP BP 05/03/20 12:03 36.6 C 81 19 106/88 05/03/20 10:16 80 20 05/03/20 08:00 98 H 05/03/20 07:57 36.6 C 94 H 19 107/73 03/13/21 07:12 80 26 H 05/03/20 06:57 85 26 H 05/03/20 04:00 36.8 C 83 19 110/71 05/03/20 03:31 20 Pulse Ox 05/03/20 12:03 89 L 05/03/20 10:16 93 05/03/20 08:00 05/03/20 07:57 89 L 05/03/20 07:12 94 05/03/20 06:57 95 05/03/20 04:00 94 05/03/20 03:31 91 Laboratory Results 04/30/20 06:45 04/30/20 06:45 Procalcitonin is increased from 7.6-9.4 Galactomannan positive at greater than 500 PG Care Time/CCT Total # of Minutes Spent Total Time Spent with Patient: Total time spent is greater than 50% in coordination of care (as documented) at patient's floor/unit and/or counseling patient: Coding Level of Care Code 30883 Subseq Hosp Care Lvl 3 Diagnoses Acute hypoxemic respiratory failure J96.01 COPD (chronic obstructive pulmonary disease) J44.9 Emphysema type: centrilobular Pneumonia J18.9 Laterality: bilateral Lung location: unspecified part of lung Pneumonia type: due to unspecified organism
--- NOTE | 2020-05-03 14:54 | Hospitalist Progress Note ---
Date of Service May 03, 2020 Assessment & Plan (1) Pneumonia: 75-year-old male with stage IV non-small cell lung cancer with brain metastases admitted with progressive hypoxemic respiratory failure and diffuse pulmonary infiltrates. The differential is broad and would include infectious etiologies especially given his elevated procalcitonin however he is not febrile and his white blood cell count is normal although he is on immunotherapy and steroids. Durvulamab pulmonary toxicity is also a possibility. Atypical pulmonary edema and pulmonary hemorrhage would also be on the differential. The patient is too unstable to consider bronchoscopy at this point time as this would likely require intubation mechanical ventilation. The patient again reiterates that his CODE STATUS is DNR/DNI. Acute Hypoxic Respiratory Failure Suspect 2/2 LLL PNA. requiring vapotherm high flow oxygen-> difficult situation as cannot titrate oxygen to lower amounts, pt is now becomming despondent and may consider terminal titration in the hospital - increase LLL opacity on CXR compared to prior - COVID negative x2 for COVID, negative for flu vancomycin/ cefepime will stop PT is assured that he does not want to live this way and does not want to try to make it to home, he wants to stop supportive care on 05/04/20 by reducing oxygen supplentation, his is updated and she is also supportive of this plan as outlined by Palliative care. Currently the will visit in the afternoon and when the family decides will have morphine and ativan available and have his oxygen discontinued. (2) Sepsis: As above (3) Hypoxia: multifactoral, has severe copd, now new pneumonia, and possible pulmonary toxicity Continue high flow nasal cannula oxygen mask to keep pulse ox greater than 88- 90% Scheduled duo nebs He does not desire intubation (4) Elevated troponin: not [place] consider Demand ischemia (5) Non-small cell lung cancer (NSCLC): pt has history of metastatic lesions to brain CTA suggests continued pulmonary lesions Palliative care has been in discussion with family, cannot tolerate time off vapotherm in any manner, would not survive trip to home (6) Hypomagnesemia: replete (7) COPD (chronic obstructive pulmonary disease): (8) Thrombocytopenia: continues (9) DVT prophylaxis: heparin sc tid Admission and Anticipated Discharge Date Admission Date: April 29, 2020 Subjective Pulmonary medicine had turned him up to an FiO2 of 100% with improvement in his oxygen saturations to the high 80 low 90% range. The patient states that he feels about the same. He is not really coughing or expectorating phlegm. He is getting frustrated by the lack of any significant clinical progress. Review of Systems Review of Systems: moderate distress and fatigue no headache, blurry or double vision no speech or swallowing issues no chest pain, pressure or palpitations significant shortness of breath, non productive cough or wheezes no abdominal pain, nausea or vomiting, diarrhea or constipation no dysuria, hematuria or frequency no focal joint pain or swelling no back pain, CVA tenderness or radicular pain no bruising, bleeding or rashes no focal signs of weakness or numbness or altered sensation no complaints of anxiety or depression.. Physical Exam Physical Exam: The patient appeared chronically ill short of breath, and fatigued Vital signs as documented. Head exam is normocephalic atraumatic no scleral icterus Neck is without JVD, thyromegaly, or carotid bruits. Lungs are very diminished with poor air movement Cardiac exam, Rhythm is regular.. BEATRICE Abdominal exam reveals normal bowel sounds, soft non tender, no masses Extremities are nonedematous and both pedal pulses are present Neurologic exam is alert and oriented, very weak over all Skin is without bruises or rashes Psychologically is without concerns for anxiety or depression Results & Data Results & Data ([facility]) Vital Signs (Past 12 Hours) Vital Signs Temp Pulse Pulse Pulse Resp BP BP 05/03/20 12:03 97.9 F 81 19 106/88 05/03/20 10:16 80 20 05/03/20 08:00 98 H 05/03/20 07:57 97.9 F 94 H 19 107/73 05/03/20 07:12 80 26 H 05/03/20 06:57 85 26 H 05/03/20 04:00 98.2 F 83 19 110/71 05/03/20 03:31 20 Pulse Ox 05/03/20 12:03 89 L 05/03/20 10:16 93 05/03/20 08:00 05/03/20 07:57 89 L 05/03/20 07:12 94 05/03/20 06:57 95 05/03/20 04:00 94 05/03/20 03:31 91 PG Care Time/CCT Total # of Minutes Spent Total Time Spent with Patient: Total time spent is greater than 50% in coordination of care (as documented) at patient's floor/unit and/or counseling p atient: Coding Level of Care Code 04875 Subseq Hosp Care Lvl 3 Diagnoses Pneumonia J18.9 Laterality: bilateral Lung location: unspecified part of lung Pneumonia type: due to unspecified organism Sepsis A41.9 Hypoxia R09.02 Elevated troponin R77.8 Non-small cell lung cancer (NSCLC) C34.91 Laterality: right Hypomagnesemia E83.42 COPD (chronic obstructive pulmonary disease) J44.9 Emphysema type: centrilobular Thrombocytopenia D69.6 DVT prophylaxis Z29.9 (1) Pneumonia Laterality: bilateral Lung location: unspecified part of lung Pneumonia type: due to unspecified organism Qualified Code(s): J18.9 - Pneumonia, unspecified organism (2) Non-small cell lung cancer (NSCLC) Laterality: right Qualified Code(s): C34.91 - Malignant neoplasm of unspecified part of right bronchus or lung (3) COPD (chronic obstructive pulmonary disease) Emphysema type: centrilobular
[2020-05-03] MEDS ORDERED: SCOPOLAMINE 1 MG TDSY TD SCH (16:00)
[2020-05-03] MEDS: CHECK SCOPOLAMINE PATCH PLACEMENT SCH (17:06)
[2020-05-03] MEDS ORDERED: LOPERAMIDE HCL 2 MG CAP PO STA (17:45)
[2020-05-04] MEDS: CHECK SCOPOLAMINE PATCH PLACEMENT SCH ×3 (03:49→15:22)
[2020-05-04] MEDS: MoRPHine SULFATE 2 MG/ML CARP IV PRN ×2 (06:48→08:35)
[2020-05-04] MEDS: FORMOTEROL 20 MCG/2 ML VIAL NEB SCH (07:19)
[2020-05-04] MEDS: BUDESONIDE 0.5 MG/2 ML VIAL (PULMICORT) NEB SCH (07:19)
[2020-05-04] MEDS: UMECLIDINIUM/VILANTEROL 62.5/25MCG 7 PUFFS/INHALER INH SCH (08:52)
[2020-05-04] MEDS: FAMOTIDINE 40 MG TABLET PO SCH (08:52)
[2020-05-04] MEDS: LORazepam 1 MG/2 ML VIAL IV PRN ×2 (08:58→13:14)
[2020-05-04] MEDS ORDERED: STAT IV Infusion **Titration per Protocol STA (09:39)
[2020-05-04] MEDS ORDERED: MoRPHine SULF/NSS 250 MG/250 ML BTL IV SCH (09:45)
[2020-05-04] MEDS ORDERED: MoRPHine BOLUS FROM BAG IV ONE (10:00)
--- NOTE | 2020-05-04 16:47 | Discharge Summary ---
Date of Service May 04, 2020 Admission HPI Per Admitting Provider "Brent" reports he started feeling ill yesterday. He reports he was on steroids for the last few weeks which were downgraded just before he started feeling ill. He was placed on steroids for brain metastasis but 'wans't bad, I felt OK' until yesterday. Decreased his steroids last week (thinks Tuesday) down to 4mg twice daily from 4mg QID. Starting yesterday evening he quickly became 'wiped out' and weak with chills and fever. Endorses diarrhea 'like you wouldn't believe' without blood or melena. He endorses decreased taste and increased shortness of breath compared to his normal baseline. He has had an intermittent cough which is not productive. "I have a hard time coughing anything up anymore.' Not usre about other symptoms, just reports 'so fricking weak and cold.' Last radiation treatment was 2-3 weeks ago. He was supposed to have addtional treatment today (thinks radiation but "I cant remember") Medication: Reports is NOT on MTP. Is on plaavix/ASA, was told to stay on DAPT for life. MedHx: Hx of CA 7-8 years ago. Hx of cardiac stends and L leg stent (upper, high). 2L Home O2. No CPAP, but breaths with oxygen qHS Silviano had his first COVID shot 4-5 days ago. His has also had one shot. Tobacco: Former smoker, quit in July 2019. Previously smoked cigars 3-4x per day for 'years' EtoH: None Recreational: None Social: lives with his in a home, no one sick at home. 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 Code Status: DNR/DNI, do not intubate for declining respiratory status Principal Diagnosis pt 1629 hours 05/04/2020 from metastatic non small cell lung cancer Discharge Exam Pt was examined and had no spontaneous heart tones or respirations and was pronounced , his was notified Discharge Data Allergies Allergy/AdvReac Type Severity Reaction Status Date / Time No Known Allergies Allergy Verified 04/29/20 09:01 Consultations 04/29/20 10:14 ED Decision to Admit Stat 04/29/20 10:19 ED Decision to Admit Stat 04/29/20 13:34 Consult Hematology Routine Consult Palliative Care Routine Consult Pulmonology Routine Ordered Studies 04/29/20 12:29 CT angio chest PE protocol Urgent Hospital Course (1) : pt from metastatic non small cell lung cancer 05/04/2020 1629 the remained below is from his previous hospital stay (2) Pneumonia: 75-year-old male with stage IV non-small cell lung cancer with brain metastases admitted with progressive hypoxemic respiratory failure and diffuse pulmonary infiltrates. The differential is broad and would include infectious etiologies especially given his elevated procalcitonin however he is not febrile and his white blood cell count is normal although he is on immunotherapy and steroids. Durvulamab pulmonary toxicity is also a possibility. Atypical pulmonary edema and pulmonary hemorrhage would also be on the differential. The patient is too unstable to consider bronchoscopy at this point time as this would likely require intubation mechanical ventilation. The patient again reiterates that his CODE STATUS is DNR/DNI. Acute Hypoxic Respiratory Failure Suspect 2/2 LLL PNA. requiring vapotherm high flow oxygen-> difficult situation as cannot titrate oxygen to lower amounts, terminal titration in the hospital performed as his and his family request PT is assured that he does not want to live this way and does not want to try to make it to home, he wants to stop supportive care on 05/04/20 by reducing oxygen supplementation, his is updated and she is also supportive of this plan as outlined by Palliative care. Currently the will visit in the afternoon and when the family decides will have morphine and ativan available and have his oxygen discontinued. (3) Elevated troponin: not [place] consider Demand ischemia (4) Non-small cell lung cancer (NSCLC): pt has history of metastatic lesions to brain CTA suggests continued pulmonary lesions Palliative care has been in discussion with family (5) Hypomagnesemia: replete (6) COPD (chronic obstructive pulmonary disease): (7) Thrombocytopenia: continues Total Time Total Time Spent Total Time Spent (In Minutes): greater than 30 minutes were required to complete this process Discharge Plan Discharge Items Reason For Visit: SEPSIS,AHRF,?PNA Medications and DC Order Prescriptions: No Action clopidogrel [Plavix] 75 mg tablet 75 mg PO DAILY Qty: 90 RF: 3 (DME) Portable Oxygen Misc See Rx Instructions .ROUTE .MEDSUPPLY Qty: 1 RF: 0 multivitamin tablet 1 tab PO QAM RF: 0 celecoxib [Celebrex] 200 mg capsule 200 mg PO BID RF: 0 tamsulosin [Flomax] 0.4 mg capsule 0.4 mg PO QAM RF: 0 albuterol sulfate 90 mcg/actuation aerosol powdr breath activated 1 puffs INH QID PRN (Reason: shortness of breath or wheezing) Qty: 1 RF: 2 famotidine 40 mg tablet 40 mg PO BID RF: 0 metoclopramide HCl 5 mg tablet 5 mg PO BID RF: 0 aspirin [Aspir-81] 81 mg Tablet,Delayed Release (Dr/Ec) 81 mg PO HS RF: 0 atorvastatin 40 mg tablet 40 mg PO HS RF: 0 isosorbide mononitrate 30 mg tablet extended release 24 hr 15 mg PO HS RF: 0 clindamycin phosphate 1 % gel 1 applic topical BID PRN (Reason: outbreaks) RF: 0 dexamethasone 4 mg tablet 4 mg PO BID RF: 0 Anoro Ellipta 62.5-25 mcg/actuation blister with device 1 inh INH QAM RF: 0 Admission Data Admit Date/Time: 04/29/20 12:29 Attending Provider: Marcelino Vivas Admit Provider: Anthony Cavanaugh Primary Care Provider: Sherie Sebastian Other Providers: Marcelino Vivas ; Rob Gaspar V. ; Sherie Sebastian ; Preston Valdez Coding Level of Care Code D/C Day Management >30 mins Diagnoses R99 Pneumonia J18.9 Laterality: bilateral Lung location: unspecified part of lung Pneumonia type: due to unspecified organism Elevated troponin R77.8 Non-small cell lung cancer (NSCLC) C34.91 Laterality: right Hypomagnesemia E83.42 COPD (chronic obstructive pulmonary disease) J44.9 Emphysema type: centrilobular Thrombocytopenia D69.6
[2020-05-04] MEDS ORDERED: methylPREDNISolone 40 MG in SYRINGE 0 ML IV SCH (21:00)
== END 2020-05-04 16:29 | disposition expired | DRG 871 ==
LOC: ED 06:53 → SUATTDRO 12:29 → 2E 12:29